=== PATIENT | male | born 1975 | race Caucasian/White ===

== ENCOUNTER 2016-09-06 15:27 | Emergency (ER) | payer BC ==
[2016-09-06 15:35] VITALS: BP 136/86
--- NOTE | 2016-09-06 15:48 | UC ---
Skin Complaint HPI - HPI Summary HPI Summary: Patient thought he had an ingrown hair on the top of his left hand, he attempted to pop it and now the hand is hot, red and swollen, tender with movement or touch. denies fever - History of Current Complaint Chief Complaint: UCSkin Stated Complaint: SKIN COMPLAINT Hx Obtained From: Patient Onset/Duration: Sudden Onset, Lasting Days Skin Exposure Onset/Duration: Days Ago Timing: Constant Onset Severity: Mild Current Severity: Mild Location: Discrete - left hand Character: Swelling, Redness, Painful Aggravating: Touch Alleviating: Nothing Associated Signs & Symptoms: Positive: Negative - Allergy/Home Medications Allergies/Adverse Reactions: Allergies Allergy/AdvReac Type Severity Reaction Status Date / Time No Known Allergies Allergy Verified 09/06/16 15:35 Review of Systems Skin: Other - red painful area on hand Eyes: Negative ENT: Negative Respiratory: Negative Cardiovascular: Negative Gastrointestinal: Negative Genitourinary: Negative Motor: Negative Neurovascular: Negative Musculoskeletal: Edema Neurological: Negative Psychological: Negative All Other Systems Reviewed And Are Negative: Yes PMH/Surg Hx/FS Hx/Imm Hx Previously Healthy: Yes Endocrine History Of: Denies: Diabetes, Thyroid Disease Cardiovascular History Of: Denies: Cardiac Disorders, Hypertension Respiratory History Of: Denies: COPD, Asthma GI/ History Of: Denies: Ulcer - Surgical History Surgical History: Yes Surgery Procedure, Year, and Place: LEFT ankle - Family History Known Family History: Positive: Diabetes - Social History Alcohol Use: Occasionally Substance Use Type: None Smoking Status (MU): Never Smoked Tobacco - Immunization History Most Recent Influenza Vaccination: [id number] Physical Exam Triage Information Reviewed: Yes Appearance: Well-Appearing, Well-Nourished, Pain Distress Vital Signs: Initial Vital Signs Temp 98.1 F 09/06/16 15:32 Pulse 65 09/06/16 15:32 Resp 16 09/06/16 15:32 BP 136/86 09/06/16 15:32 Pulse Ox 100 09/06/16 15:32 Vital Signs Reviewed: Yes Eye Exam: Normal Eyes: Positive: Conjunctiva Clear ENT Exam: Normal ENT: Positive: Normal ENT inspection, Hearing grossly normal, Pharynx normal, TMs normal Dental Exam: Normal Neck exam: Normal Neck: Positive: Supple, Nontender, No Lymphadenopathy Respiratory Exam: Normal Respiratory: Positive: Chest non-tender, Lungs clear, Normal breath sounds Cardiovascular Exam: Normal Cardiovascular: Positive: RRR, No Murmur, Pulses Normal Abdominal Exam: Normal Bowel Sounds: Positive: Present Musculoskeletal Exam: Normal Musculoskeletal: Positive: Strength Intact, ROM Limited @ - with finger flexion due to swelling Neurological Exam: Normal Neurological: Positive: Alert, Muscle Tone Normal Psychological Exam: Normal Skin Exam: Normal Course/Dx - Course Course Of Treatment: hx obtained, exam performed, medication prescribed for cellulitis - Differential Diagnoses - Skin Complaint Differential Diagnoses: Allergic Reaction, Cellulitis, Urticaria - Diagnoses Provider Diagnoses: cellulitis Discharge - Discharge Plan Condition: Stable Disposition: HOME Prescriptions: Sulfamethox/Trimethoprim DS* [Bactrim DS 800/160 TAB*] 1 tab PO BID #14 tab Patient Education Materials: Cellulitis (ED) Additional Instructions: Take the full course of bactrim. I recommend that you soak your hand in warm soapy water a few times a day for the next few days, to increase circulation. Follow up with any fever, or increase in swelling or erythema.
== END 2016-09-06 16:05 | disposition home or self-care (01) ==
LOC: UCCORT 15:27
DX: L03.114 Cellulitis of left upper limb (principal)
CPT/HCPCS: 99212; G0463

== ENCOUNTER 2016-09-14 12:07 | Emergency (ER) | payer BC ==
[2016-09-14 12:57] VITALS: BP 115/82
--- NOTE | 2016-09-14 13:02 | UC ---
Skin Complaint HPI - HPI Summary HPI Summary: abscess left hand x 10 day s was seen 10 days ago at the walk in , was place on Bactrim ds , just finished the abx cont. to have pain and swelling of the hand, had been draining no fever, no chills - History of Current Complaint Chief Complaint: UCWounds Time Seen by Provider: 09/14/16 12:36 Stated Complaint: LEFT HAND COMPLAINT Hx Obtained From: Patient Onset/Duration: Gradual Onset, Lasting Days - 10, Still Present, Worse Since - past 2 dasy Timing: Constant Onset Severity: Moderate Current Severity: Moderate Location: Hand (Left) - dorsal aspect Character: Swelling, Pain, Redness, Raised, Painful Aggravating: Touch Alleviating: Heat Associated Signs & Symptoms: Positive: Tenderness - Allergy/Home Medications Allergies/Adverse Reactions: Allergies Allergy/AdvReac Type Severity Reaction Status Date / Time No Known Allergies Allergy Verified 09/06/16 15:35 Home Medications: Home Medications NK [No Home Medications Reported] 09/14/16 [History Confirmed 09/14/16] Review of Systems Constitutional: Negative Skin: Other - abscess left hand Eyes: Negative ENT: Negative Respiratory: Negative Cardiovascular: Negative All Other Systems Reviewed And Are Negative: Yes PMH/Surg Hx/FS Hx/Imm Hx Previously Healthy: Yes Endocrine History Of: Denies: Diabetes, Thyroid Disease Cardiovascular History Of: Denies: Cardiac Disorders, Hypertension Respiratory History Of: Denies: COPD, Asthma GI/ History Of: Denies: Ulcer - Surgical History Surgical History: Yes Surgery Procedure, Year, and Place: LEFT ankle - Family History Known Family History: Positive: Diabetes - Social History Alcohol Use: Occasionally Substance Use Type: None Smoking Status (MU): Never Smoked Tobacco - Immunization History Most Recent Influenza Vaccination: [id number] Physical Exam Triage Information Reviewed: Yes Appearance: Well-Appearing, Well-Nourished, Pain Distress Vital Signs: Initial Vital Signs Temp 97.9 F 09/14/16 12:53 Pulse 74 09/14/16 12:53 Resp 16 09/14/16 12:53 BP 115/82 09/14/16 12:53 Pulse Ox 96 09/14/16 12:53 Vital Signs Reviewed: Yes Eye Exam: Normal Eyes: Positive: Conjunctiva Clear ENT: Positive: Normal ENT inspection, Hearing grossly normal, Pharynx normal Neck exam: Normal Neck: Positive: Supple, Nontender, No Lymphadenopathy Respiratory: Positive: Chest non-tender, Lungs clear, Normal breath sounds Cardiovascular: Positive: RRR, No Murmur, Pulses Normal Skin: Positive: Other - abscess left hand , + swelling, erythem , + white drainage Course/Dx - Diagnoses Provider Diagnoses: abscess left hand Discharge - Discharge Plan Condition: Stable Disposition: HOME Patient Education Materials: Abscess (ED) Referrals: Radha Rahman MD [Primary Care Provider] - 2 Weeks Additional Instructions: keep the area clean change the dressing daily keflex 500 mg 3x per day for 10 days follow up for wound check in 2 days
== END 2016-09-14 13:01 | disposition home or self-care (01) ==
LOC: UCCORT 12:07
DX: L02.512 Cutaneous abscess of left hand (principal)
CPT/HCPCS: 99212; G0463

== ENCOUNTER 2016-10-22 15:47 | Emergency (ER) | payer BC ==
[2016-10-22 16:09] VITALS: BP 136/78
[2016-10-22] MEDS ORDERED: Lidocaine 1%* 5 ML VIAL ONE (17:27)
[2016-10-22] MEDS ORDERED: ceFAZolin 500 MG VIAL(*) 500 MG VIAL IM ONE (17:27)
[2016-10-22] MEDS ORDERED: Lidocaine 2% PF* 5 ML VIAL ONE (17:29)
--- NOTE | 2016-10-22 17:33 | UC ---
Skin Complaint HPI - HPI Summary HPI Summary: 41 yo gentleman with L post neck sore, started Tuesday (possibly after hair cut) and worsening since Tuesday. Today is Tuesday. No fever / chills. Tried to squeeze it earlier today, but nothing came out. However, redness, pain, swelling have increased. No neck stiffness. Able to work today. Pertinent hx - last month was treated for L dorsal hand abscess. Required 2 courses of abx (bactrim - didn't really work, cephalexin did work). Denies sores elsewhere. Cx was not sent. Tet utd per pt. PCP Dr Rahman. - History of Current Complaint Chief Complaint: UCSkin Time Seen by Provider: 10/22/16 17:10 Stated Complaint: SKIN COMPLAINT Hx Obtained From: Patient Onset/Duration: Gradual Onset - Allergy/Home Medications Allergies/Adverse Reactions: Allergies Allergy/AdvReac Type Severity Reaction Status Date / Time No Known Allergies Allergy Verified 10/22/16 16:08 Review of Systems Constitutional: Negative Skin: Other - see hpi Eyes: Negative ENT: Negative Respiratory: Negative Cardiovascular: Negative Gastrointestinal: Negative Genitourinary: Negative Motor: Negative Neurovascular: Negative Musculoskeletal: Negative Neurological: Negative Psychological: Negative All Other Systems Reviewed And Are Negative: Yes PMH/Surg Hx/FS Hx/Imm Hx - Additional Past Medical History Additional PMH: see hpi Previously Healthy: Yes Endocrine History Of: Denies: Diabetes, Thyroid Disease Cardiovascular History Of: Denies: Cardiac Disorders, Hypertension Respiratory History Of: Denies: COPD, Asthma GI/ History Of: Denies: Ulcer - Surgical History Surgical History: Yes Surgery Procedure, Year, and Place: LEFT ankle - Family History Known Family History: Positive: Diabetes - Social History Alcohol Use: Occasionally Substance Use Type: None Smoking Status (MU): Never Smoked Tobacco - Immunization History Most Recent Influenza Vaccination: [id number] Physical Exam Triage Information Reviewed: Yes Appearance: Well-Appearing, Well-Nourished Vital Signs: Initial Vital Signs Temp 98.6 F 10/22/16 16:06 Pulse 71 10/22/16 16:06 Resp 15 10/22/16 16:06 BP 136/78 10/22/16 16:06 Pulse Ox 98 10/22/16 16:06 Vital Signs Reviewed: Yes Eye Exam: Normal ENT Exam: Normal Neck exam: Other - Post neck with redness, inflammation approx 6.5cm L x 6cm W with central area of pimple like purulence, but not draining. Neck is supple. No meningismus. Respiratory Exam: Normal - no tachypnea / no dypsnea. Cardiovascular Exam: Normal Abdominal Exam: Normal Musculoskeletal Exam: Normal Neurological Exam: Normal Psychological Exam: Normal Skin Exam: Other - see above neck. O/w ok. Course/Dx - Course Course Of Treatment: Reviewed microbiol as available in [employer] (n/a). [employer] and drainage: Pt expressed understanding and agreement. Appropriate time out(s ) performed. Cleansed with alcohol pad followed by betadine swab. Local anesthesia with 3 cc of 2% lidocaine with 10:1 NaHCO3 buffer. 1.2cm insicion with #11 blade scalpal to approx 1.2cm depth. Dark yellow purulent thick material returned. + swab via sethi cx obtained. Irrigated with NS 10cc with effl approx that of affluent. Packed gently with iodoform 1/4inch gauze. Dressing per RN. Tolerated procedure well, without complication. Reviewed WC instructions. See AVS. Questions answered to the best of my ability. - Diagnoses Provider Diagnoses: Posterior neck abscess and cellulitis Discharge - Discharge Plan Condition: Stable Disposition: HOME Prescriptions: DOXYcycline CAP(*) [DOXYcycline 100MG CAP(*)] 100 mg PO BID #20 cap Mupirocin 2% OINT* [Bactroban 2 % Oint*] 1 applic TOPICAL BID #1 tube Patient Education Materials: Abscess (ED) Referrals: Radha Rahman MD [Primary Care Provider] - Additional Instructions: Follow up [facility] or [facility] in 2 days. Ok to shower, but try to avoid getting back of neck wet. If it does get wet, change the outer dressing, leave the packing in place. Seek medical attention sooner for worse or new problems. Wound culture in the lab. Ancef here today 500mg IM Rx - Doxycycline 100mg by mouth twice daily. This could be modified, pending culture results. Start Doxycycline tonight. Confirm your tetanus immunization status with Dr. Rahman's office, at your convenience.
[2016-10-22] MEDS ORDERED: Sodium Bicarbonate 8.4% IV* 50 ML VIAL ONE (17:36)
== END 2016-10-22 18:31 | disposition home or self-care (01) ==
LOC: UCCORT 15:47
DX: L02.11 Cutaneous abscess of neck (principal); L03.221 Cellulitis of neck
CPT/HCPCS: 10061; 87070; 87077; 87186; 87205; 87640; 87641; 96372; 99212; G0463; J0690

== ENCOUNTER 2016-10-24 07:15 | Emergency (ER) | payer BC ==
[2016-10-24 07:24] VITALS: BP 138/76
[2016-10-24] MEDS ORDERED: Lidocaine 4% TOPICAL* 50 ML TOP.SOLN TOPICAL ONE (07:27)
--- NOTE | 2016-10-24 08:31 | UC ---
General HPI - HPI Summary HPI Summary: 41 yo gentleman presents to [facility] for planned f/u for post neck abscess. S/p I/D in [facility], by myself. Feels better. Left dressing on. No fever / chills. No new sores. No new redness. Details of abscess as noted on [facility] notes from . - History of Current Complaint Chief Complaint: UCWounds Stated Complaint: WOUND RECHECK Time Seen by Provider: 10/24/16 07:27 Hx Obtained From: Patient Onset/Duration: Lasting Days - Allergy/Home Medications Allergies/Adverse Reactions: Allergies Allergy/AdvReac Type Severity Reaction Status Date / Time No Known Allergies Allergy Verified 10/22/16 16:08 Home Medications: Home Medications Ibuprofen TAB* [Advil TAB*] 200 mg PO Q8HR 10/24/16 [History Confirmed 10/24/16] PMH/Surg Hx/FS Hx/Imm Hx Previously Healthy: Yes Endocrine History Of: Denies: Diabetes, Thyroid Disease Cardiovascular History Of: Denies: Cardiac Disorders, Hypertension Respiratory History Of: Denies: COPD, Asthma GI/ History Of: Denies: Ulcer - Surgical History Surgical History: Yes Surgery Procedure, Year, and Place: LEFT ankle - Family History Known Family History: Positive: Diabetes - Social History Alcohol Use: Occasionally Substance Use Type: None Smoking Status (MU): Never Smoked Tobacco - Immunization History Most Recent Influenza Vaccination: [id number] Review of Systems Constitutional: Negative Skin: Other - see hpi Eyes: Negative ENT: Negative Respiratory: Negative Cardiovascular: Negative Gastrointestinal: Negative Genitourinary: Negative Motor: Negative Neurovascular: Negative Musculoskeletal: Negative Neurological: Negative Psychological: Negative All Other Systems Reviewed And Are Negative: Yes Physical Exam Triage Information Reviewed: Yes Appearance: Well-Appearing, Well-Nourished Vital Signs: Initial Vital Signs Temp 97.5 F 10/24/16 07:19 Pulse 83 10/24/16 07:19 Resp 16 10/24/16 07:19 BP 138/76 10/24/16 07:19 Pulse Ox 97 10/24/16 07:19 Vital Signs Reviewed: Yes Eye Exam: Normal - grossly normal ENT Exam: Normal - grossly normal Neck exam: Other - see skin Neck: Positive: Supple, Nontender Respiratory Exam: Normal - no dyspnea / no tachypnea Abdominal Exam: Normal Musculoskeletal Exam: Normal Neurological Exam: Normal Psychological Exam: Normal Skin Exam: Other - post neck with redness at site of previous abscess I/d. The area of redness has decreased since Tuesday10/22/16, but is still inflammed and cellulitic. + yellow purulent material expressed, carla from inferior wound site. No foul odor, no crepitus. Course/Dx - Course Course Of Treatment: Wound irrigated by myself. 4% topical lidocaine solution applied. Gently explored wound, expressed small purulent material. Gently packed with 1/4inch iodoform gauze, covered with gauze and tape. Pt may need further extension of incision, but best in the surgery office. D/w Mr. Das , who expresses understanding and agreement. D/w Dr. Freeman 08:00 (Gen Surg ) - he will kindly see in the surgery office tomorrow morning. Meanwhile, continue current abx, wound care as previously instructed. To ED for worse or new problems in the meantime. Questions as posed answered to the best of my ability. - Differential Dx - Multi-Symptom Provider Diagnoses: Ascess and cellulitis recheck. Discharge - Discharge Plan Condition: Stable Disposition: HOME Patient Education Materials: Abscess (ED) Referrals: Radha Rahman MD [Primary Care Provider] - Fredy Freeman MD [Medical Doctor] - 1 Day (Call Dr. Freeman tomorrow at 08: 30am to schedule follow-up) Additional Instructions: Follow up with Dr. Freeman tomorrow. Call the office at 08:30am to schedule appointment. Continue Doxycycline. Seek medical attention sooner for worse or new problems in the meantime. Continue wound care instructions as per your visit on 10/22/2016.
== END 2016-10-24 08:25 | disposition home or self-care (01) ==
LOC: UCEAST 07:15
DX: L02.11 Cutaneous abscess of neck (principal); L03.221 Cellulitis of neck
CPT/HCPCS: 99212; G0463

== ENCOUNTER 2017-02-19 12:03 | Emergency (ER) | payer BC ==
[2017-02-19 12:21] VITALS: BP 136/82
--- NOTE | 2017-02-19 13:12 | UC ---
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 Pt states the tip of his nose has progressively gotten redder and bigger as the week has gone on. Denies fever." no drainage. this is 3rd skin infection he has had in 3 months. all have tested negative for MRSA. he has been using topical mupiricin w/o any relief. nkda - History of Current Complaint Chief Complaint: UCSkin Time Seen by Provider: 02/19/17 12:50 Stated Complaint: FACIAL SKIN CONCERN - Allergy/Home Medications Allergies/Adverse Reactions: Allergies Allergy/AdvReac Type Severity Reaction Status Date / Time No Known Allergies Allergy Verified 02/19/17 12:21 Review of Systems Constitutional: Negative Skin: Negative Eyes: Negative ENT: Negative, Other - left nares sore/nose infection. no drainage Respiratory: Negative Cardiovascular: Negative Gastrointestinal: Negative Genitourinary: Negative Motor: Negative Neurovascular: Negative Musculoskeletal: Negative Neurological: Negative Psychological: Negative All Other Systems Reviewed And Are Negative: Yes PMH/Surg Hx/FS Hx/Imm Hx Previously Healthy: Yes - Surgical History Surgical History: Yes Surgery Procedure, Year, and Place: LEFT ankle - Family History Known Family History: Positive: Diabetes - Social History Alcohol Use: Occasionally Substance Use Type: None Smoking Status (MU): Never Smoked Tobacco - Immunization History Most Recent Influenza Vaccination: [id number] Physical Exam Triage Information Reviewed: Yes Appearance: Well-Appearing, No Pain Distress, Well-Nourished Vital Signs: Initial Vital Signs Temp 98.6 F 02/19/17 12:16 Pulse 77 02/19/17 12:16 Resp 14 02/19/17 12:16 BP 136/82 02/19/17 12:16 Pulse Ox 100 02/19/17 12:16 Vital Signs Reviewed: Yes Eye Exam: Normal ENT Exam: Normal ENT: Positive: Hearing grossly normal, Pharynx normal, TMs normal, Other: - distal nose with erythema, no abscess or discharge. slightly warm to touch. distal internal nares left with small pore opening with mild honey crusted discharge. no purulent discharge or head noted. tender. Neck exam: Normal Neck: Positive: Supple, Nontender, No Lymphadenopathy Respiratory: Positive: Lungs clear, Normal breath sounds, No respiratory distress, No accessory muscle use. Negative: Crackles, Rhonchi, Stridor Abdominal Exam: Normal Abdomen Description: Positive: Nontender, Soft Musculoskeletal Exam: Normal Neurological Exam: Normal Psychological Exam: Normal Skin: Positive: Other - see above Course/Dx - Differential Diagnoses - Skin Complaint Differential Diagnoses: Abscess, Cellulitis, Diabetes - Diagnoses Provider Diagnoses: left nares cellulitis Discharge - Discharge Plan Condition: Stable Disposition: HOME Prescriptions: Sulfamethox/Trimethoprim DS* [Bactrim DS 800/160 TAB*] 1 tab PO BID #20 tab Patient Education Materials: Cellulitis (ED) Referrals: Radha Rahman MD [Primary Care Provider] - Warren Kauffman MD [Medical Doctor] - 3 Days Additional Instructions: continue with mupiricin await wound culture results take a probiotic daily while on the antibiotic to help prevent c diff Follow up with your PCP to inquire about causes of recurrent infections such as diabetes or at least consider an infectious disease consult.
== END 2017-02-19 13:31 | disposition home or self-care (01) ==
LOC: UCCORT 12:03
DX: J34.0 Abscess, furuncle and carbuncle of nose (principal)
CPT/HCPCS: 87070; 87077; 99212; G0463

== ENCOUNTER 2017-04-26 20:01 | Emergency (ER) | payer BC ==
[2017-04-26 21:09] VITALS: BP 136/91
[2017-04-26] MEDS ORDERED: Azithromycin TAB* 250 MG PO ONE (21:37)
[2017-04-26] MEDS ORDERED: Amoxicillin/Clavulanate TAB* 875 MG PO ONE (21:37)
--- NOTE | 2017-04-26 21:42 | RAD ---
INDICATION: Chest pain COMPARISON: None TECHNIQUE: PA and lateral dual-energy views were obtained. FINDINGS: Bones/Soft Tissues: There are no acute bony findings. Cardiomediastinal: The cardiomediastinal silhouette is normal. Lungs: There is a moderate-sized lingular infiltrate with consolidation. The remaining lung hardy are clear. Pleura: There are no pleural effusions. Other: None IMPRESSION: LINGULAR PNEUMONIA. SUGGEST FOLLOW-UP.
--- NOTE | 2017-04-26 22:10 | ED ---
Respiratory - HPI Summary HPI Summary: 41 yr old with cough, fever, malaise for three days. He has others with pneumonia in his household. He states he feels tired and is coughing a lot. Denies CP. Denies SOB. He has not had runny nose or sore throat. - History of Current Complaint Chief Complaint: UCGeneralIllness Stated Complaint: FEVER,COUGH,BODY ACHES Time Seen by Provider: 04/26/17 21:16 Pain Intensity: 0 - Allergy/Home Medications Allergies/Adverse Reactions: Allergies Allergy/AdvReac Type Severity Reaction Status Date / Time No Known Allergies Allergy Verified 04/26/17 21:09 PMH/Surg Hx/FS Hx/Imm Hx Endocrine/Hematology History: Denies: Hx Diabetes, Hx Thyroid Disease Cardiovascular History: Denies: Hx Hypertension Respiratory History: Denies: Hx Asthma, Hx Chronic Obstructive Pulmonary Disease (COPD) GI History: Denies: Hx Ulcer - Surgical History Surgery Procedure, Year, and Place: LEFT ankle Infectious Disease History: No Infectious Disease History: Denies: Hx Clostridium Difficile, Hx Hepatitis, Hx Human Immunodeficiency Virus (HIV), Hx of Known/Suspected MRSA, Hx Shingles, Hx Tuberculosis, Hx Known/ Suspected VRE, Hx Known/Suspected VRSA, History Other Infectious Disease, Traveled Outside the [place] in Last 30 Days - Family History Known Family History: Positive: Diabetes - Social History Occupation: Employed Full-time Alcohol Use: Occasionally Substance Use Type: Reports: None Smoking Status (MU): Never Smoked Tobacco Review of Systems Positive: Fever, Chills, Fatigue Positive: Cough All Other Systems Reviewed And Are Negative: Yes Physical Exam Triage Information Reviewed: Yes Vital Signs On Initial Exam: Initial Vitals Temp Pulse Resp BP Pulse Ox 98.1 F 98 17 136/91 94 04/26/17 21:05 04/26/17 21:05 04/26/17 21:05 04/26/17 21:05 04/26/17 21:05 Vital Signs Reviewed: Yes Appearance: Positive: Well-Appearing, No Pain Distress Skin: Positive: Warm, Skin Color Reflects Adequate Perfusion Head/Face: Positive: Normal Head/Face Inspection Eyes: Positive: EOMI ENT: Positive: Normal ENT inspection Neck: Positive: Nontender Respiratory/Lung Sounds: Positive: Clear to Auscultation, Breath Sounds Present Cardiovascular: Positive: RRR. Negative: Murmur Abdomen Description: Positive: Nontender Musculoskeletal: Positive: Strength/ROM Intact Neurological: Positive: Alert, Oriented to Person Place, Time, CN Intact II-III Psychiatric: Positive: Normal Diagnostics - Vital Signs Vital Signs Temp Pulse Resp BP Pulse Ox 04/26/17 21:05 98.1 F 98 17 136/91 94 - Laboratory Lab Statement: Any lab studies that have been ordered have been reviewed, and results considered in the medical decision making process. - Radiology chest pa lat Xray Interpretation: Positive (See Comments) Radiology Interpretation Completed By: Radiologist Disposition - Course Course Of Treatment: 41 yr old with pneumonia, dc home on augmentin and zpack - Diagnoses Provider Diagnoses: CAP (community acquired pneumonia) Discharge - Discharge Plan Condition: Good Disposition: HOME Prescriptions: Amoxicillin/Clavulanate TAB* [Augmentin TAB 875*] 875 mg PO BID #20 tab Azithromycin TAB* [Zithromax TAB (Z-COURTNEY) 250 mg #6 tabs] 2 tab PO .TODAY, THEN 1 DAILY #1 courtney Patient Education Materials: Community Acquired Pneumonia (ED), Hypertension ( ED) Forms: *Work Release Referrals: Radha Rahman MD [Primary Care Provider] - 3 Days
== END 2017-04-26 21:45 | disposition home or self-care (01) ==
LOC: UCCORT 20:01
DX: J18.9 Pneumonia, unspecified organism (principal); E11.69 Type 2 diabetes mellitus with other specified complication; E07.9 Disorder of thyroid, unspecified; I10 Essential (primary) hypertension; J44.9 Chronic obstructive pulmonary disease, unspecified
CPT/HCPCS: 71020; 99212; A9270-GY; G0463

== ENCOUNTER 2017-06-08 07:34 | Emergency (ER) | payer BC ==
[2017-06-08 07:43] VITALS: BP 134/85
--- NOTE | 2017-06-08 08:12 | UC ---
Ear Complaint HPI - HPI Summary HPI Summary: PT presents with 1 week ear pain and right sided ROSARIO. Pt states occassionally when looks to the extreme left or right feels slight dizzy and blurry - rapid resolution. Pt has been taking ibuprofen BID with mild relief. Pt takein Claritin D. no fever, chills, rash. mild sinus congestion. No sore throat. no cough. no cp, abd pain PT was tx for PNA 1 month ago with z pack - sx resolved Pt's medications reviewed this visit - History of Current Complaint Chief Complaint: UCEar Stated Complaint: HEADACHE, EAR PAIN Time Seen by Provider: 06/08/17 07:53 Hx Obtained From: Patient Onset/Duration: Gradual Onset Severity Initially: Mild Severity Currently: Moderate - Allergies/Home Medications Allergies/Adverse Reactions: Allergies Allergy/AdvReac Type Severity Reaction Status Date / Time No Known Allergies Allergy Verified 06/08/17 07:39 Home Medications: Home Medications Ibuprofen TAB* [Motrin TAB* 600 MG] 06/08/17 [History] Loratadine & Pseudoephedrine [Claritin-D 12 Hour 5-120 mg] 06/08/17 [History] PMH/Surg Hx/FS Hx/Imm Hx Previously Healthy: Yes - Surgical History Surgical History: Yes Surgery Procedure, Year, and Place: LEFT ankle - Family History Known Family History: Positive: Diabetes - Social History Occupation: Employed Full-time Lives: With Family Alcohol Use: Occasionally Substance Use Type: None Smoking Status (MU): Never Smoked Tobacco - Immunization History Most Recent Influenza Vaccination: 03/2017 Review of Systems Constitutional: Negative Eyes: Blurred Vision - fleeting when look to extremes ENT: Ear Ache, Sinus Congestion Respiratory: Negative Cardiovascular: Negative All Other Systems Reviewed And Are Negative: Yes Physical Exam Triage Information Reviewed: Yes Appearance: Well-Appearing, No Pain Distress, Well-Nourished Vital Signs: Initial Vital Signs Temp 96.9 F 06/08/17 07:41 Pulse 91 06/08/17 07:41 Resp 16 06/08/17 07:41 BP 134/85 06/08/17 07:41 Pulse Ox 100 06/08/17 07:41 Vital Signs Reviewed: Yes Eye Exam: Normal Eyes: Positive: Conjunctiva Clear, Other: - 2 beat horizontal nystagmus to left ENT: Positive: Other - right TM ++ fluid, erythema poorly visualized structures second to fluid left TM scant fluid no mastoid pain no temporal artery pain turbinates inflammed and boggy +PND no exudate, no erythema, uvula miline Dental Exam: Normal Neck exam: Normal Neck: Positive: Supple, Nontender, No Lymphadenopathy Respiratory Exam: Normal Respiratory: Positive: Chest non-tender, Lungs clear, Normal breath sounds, No respiratory distress, No accessory muscle use Cardiovascular Exam: Normal Cardiovascular: Positive: RRR, No Murmur, Pulses Normal, Brisk Capillary Refill Abdominal Exam: Normal Abdomen Description: Positive: Nontender, No Organomegaly, Soft Bowel Sounds: Positive: Present Musculoskeletal Exam: Normal Musculoskeletal: Positive: Strength Intact Neurological Exam: Normal Neurological: Positive: Alert Psychological Exam: Normal Psychological: Positive: Normal Response To Family Skin Exam: Normal Ear Complaint Course/Dx - Course Course Of Treatment: Pt with 1 week ROSARIO, right ear pain and occasional fleeting vision blurriness when looks to extreme. On exam with with fluid, erythema right ear. + extinguishing nystagmus. will start flonase. amox - d/w pt to eat yogurt, probiotic. hydrate. motrin/apap. rest. PCP f/u - Differential Dx/Diagnosis Provider Diagnoses: right otitis media Discharge - Discharge Plan Condition: Stable Disposition: HOME Prescriptions: Amoxicillin PO (*) [Amoxicillin 875 MG (*)] 875 mg PO BID #20 tab Fluticasone NASAL SPRAY 50MCG* [Flonase NASAL SPRAY 50MCG*] 2 spray BOTH NARES DAILY #1 btl Patient Education Materials: Otitis Media (ED) Referrals: Radha Rahman MD [Primary Care Provider] - Additional Instructions: - stay well hydrated. Drink plenty of non-alcoholic, non-caffinated beverages - take antibiotics 2 times a day as prescribed. Take with food - use nasal spray daily as instructed - Okay to alternate ibuprofen (Advil, Motrin) and tylenol every 3 hours for pain. Take with food. do NOT take for more than 4-5 days. - Contact your doctor to schedule a follow-up appointment next week. Contact your doctor or return with questions or concerns
[2017-06-08] MEDS ORDERED: Amoxicillin PO (*) 875 MG TAB PO SCH (09:00)
[2017-06-08] MEDS ORDERED: Fluticasone NASAL SPRAY 50MCG* 16 gm SPRAY BTL BOTH NARES SCH (09:00)
== END 2017-06-08 08:20 | disposition home or self-care (01) ==
LOC: UCEAST 07:34
DX: H66.91 Otitis media, unspecified, right ear (principal)
CPT/HCPCS: 99212; G0463

== ENCOUNTER 2017-06-23 11:23 | Emergency (ER) | payer BC ==
[2017-06-23 11:51] LABS: Hematocrit 47 % (42-52); Hemoglobin 15.8 g/dl (14.0-18.0); Mean Corpuscular HGB Conc 34 g/dl (31-36); Mean Corpuscular Hemoglobin 30 pg (27-31); Mean Corpuscular Volume 88 fL (80-94); Mean Platelet Volume 8 um3 (7.4-10.4); Red Cell Distribution Width 13 % (10.5-15); White Blood Count 4.2 10^3/ul (3.5-10.8)
--- OUTSIDE RECORDS SUMMARY | 2017-06-23 11:56 | XMS REPORT ---
:1975 External Reference #:[id number] Author Organization [facility] [employer] Address [address] [place] [address] Phone [phone] Care Team Providers Name Role Phone Radha Rahman M.D. Primary Care Physician Unavailable Payers Type Date Identification Numbers Payment Provider Subscriber Commercial Policy Number: [id number] BS [place] Gurjit Maricruz Taylor PayID: [id number] [id number] [place] [id number] Problems Date Description Provider Status Onset: Seasonal allergy Active Onset: 06/23/2017 Optic disc edema Jayce Recio M.D. 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 ETOH Use Occasionally consumes alcohol Smoking Patient has never smoked Recreational Drug Use Denies Drug Use Daily Caffeine Does Not Consume Caffeine Allergies, Adverse Reactions, Alerts Date Description Reaction Status Severity Comments 06/23/2017 NKDA active Medications Medication Date Status Form Strength Qnty SIG Indications Ordering Provider Zyrtec Allergy Active Capsules 10mg as needed Unknown 00 Results Description No Information Procedures Description No Information Plan of Care 06/23/2017 - Jayce Recio M.D.[id number] Unspecified papilledemaComments: Smoking can increase the risk of developing or worsening any eye related disease , as well as affect your overall health. If you are a smoker, we strongly recommend that you quit.If you are not a smoker, we strongly recommend that you do not start. YOUR OPTIC NERVES ARE SWOLLEN. THIS REQUIRES EVALUATION IN THE EMERGENCY DEPARTMENT WITH BRAIN IMAGING TO LOOK FOR A CAUSE.
--- OUTSIDE RECORDS SUMMARY | 2017-06-23 11:57 | XMS REPORT ---
:1975 External Reference #:[id number] Author Organization [facility] Address [address] [place] [address] Phone [phone] Care Team Providers Name Role Phone Radha Rahman MD FACP Primary Care Physician Unavailable Payers Type Date Identification Numbers Payment Provider Subscriber Commercial Policy Number: [id number] [facility] SYLVIE Maricruz Das Group Number: [id number] [address] [id number] PayID: [id number] [place] [address] Advance Directives Description No Advance Directives Problems Date Description Provider Status Onset: 02/28/2009 Leukopenia Radha Rahman MD Active Onset: 04/10/2008 Premature ejaculation Radha Rahman MD Inactive Inactive: 11/13/2013 Onset: 02/28/2009 Mixed hyperlipidemia Radha Rahman MD Inactive Inactive: 11/13/2013 Family History Date Family Member(s) Problem(s) Comments General Heart Disease GM General Stroke GF General Diabetes Mellitus II GM General Hypertension Mother and GM General Breast Cancer Aunt Social History Type Date Description Comments Marital Status 2 kids 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 Cigarette Use Never Smoked Cigarettes ETOH Use consumes 1-2 beers per week Recreational Drug Use Never Used Drugs Smoking Patient has never smoked Exercise Type/Frequency Exercises regularly Elliptical, bike, resistance, walk 45 min, 4-5 time per week Tattoo/Piercing Tattoo Right lower lateral leg Allergies, Adverse Reactions, Alerts Date Description Reaction Status Severity Comments 03/14/2008 NKDA active Medications Medication Date Status Form Strength Qnty SIG Indications Ordering Provider Amoxicillin/Cl 10/25/ Active Tablets 875-125mg Take 1 Unknown avulanate 2017 tablet by Potassium mouth every 12 hours for 10 days for lower respiratory tract infection Azithromycin 04/27/ Hx Tablets 250mg 6tabs 2 on first Unknown 2016 - day than 1 05/02/ daily for 4 2017 days Vitamin D3 12/09/ Hx Capsules 2000Unit 1 by mouth E55.9 Radha 2016 - every day Trevon Rahman 12/09/ 2016 No Active 12/02/ Hx Unknown Medications 2015 - 2015 No Active 10/11/ Hx Unknown Medications 2012 - 2012 Vitamin D-3 10/11/ Hx Tablets 2000Unit take 1 E55.9 Radha 2012 - tablet by Trevon Rahman 07/03/ mouth daily 2013 for nutritional support Amoxicillin 01/08/ Hx Tablets 500mg 30tabs 1 po tid 382.9 Garcia 2009 - Trevon Rahman 01/30/ 2009 Zyrtec Allergy 11/13/ Hx Tablets 10mg 1 po qd 995.3 Garcia 2009 - Trevon Rahman 02/04/ 2009 Multivital 07/04/ Hx Tablets 1 by mouth V70.0 Unknown 1989 - every day 2011 Fluoxetine HCL / Hx Capsules 20mg 90caps 1 po qd 302.75 Radha 0000 - Trevon Rahman 2010 Immunizations CPT Code Status Date Vaccine Lot # [id number] Given 05/03/2014 Influenza Virus Vaccine Split Virus Use For Individual 3Yr Older 18391 Given 04/03/2013 Influenza Virus Split 3 Yrs And Above For Intramuscular Use 43168 Given 10/11/2012 Tdap-Tetanus, Diphtheria Toxoids/Acellular TDAP [id number] Pertussis Vaccine 7+ 25709 Given 04/10/2008 Tetanus Preservative Free For Use In Individuals 7 Yrs Or Older 53572 Given 05/04/2007 Influenza Virus Vaccine Split Virus Use For Individual 3Yr Older 00130 Refused 04/10/2008 Influenza Virus Vaccine Split Virus Use For Individual 3Yr Older Vital Signs Date Vital Result Comment 06/13/2017 Body Temperature 98.6 F Heart Rate 64 /min 04/28/2017 Body Temperature 98.6 F 12/08/2016 Heart Rate 62 /min BP Systolic 126 mmHg BP Diastolic 75 mmHg BMI (Body Mass Index) 31.4 kg/m2 Weight 214.00 lb Height 69.25 inches 5'9.25" 12/03/2015 O2 % BldC Oximetry 99 % Heart Rate 56 /min BP Systolic 118 mmHg BP Diastolic 70 mmHg BMI (Body Mass Index) 29.8 kg/m2 Weight 202.00 lb Height 69 inches 5'9" 11/29/2014 Body Temperature 97.9 F O2 % BldC Oximetry 98 % Heart Rate 64 /min BP Systolic 128 mmHg BP Diastolic 62 mmHg BMI (Body Mass Index) 29.4 kg/m2 Weight 205.00 lb Height 70 inches 5'10" 11/13/2013 Body Temperature 98.0 F O2 % BldC Oximetry 96 % Heart Rate 68 /min BP Systolic 110 mmHg BP Diastolic 70 mmHg BMI (Body Mass Index) 28.6 kg/m2 Weight 199.00 lb with shoes, in office, clothed Height 70 inches 5'10" 10/11/2012 Heart Rate 62 /min BP Systolic 115 mmHg BP Diastolic 70 mmHg BMI (Body Mass Index) 28.0 kg/m2 Weight 195.00 lb Height 70 inches 5'10" 09/27/2011 Body Temperature 98.3 F Heart Rate 64 /min BP Systolic 110 mmHg BP Diastolic 75 mmHg BMI (Body Mass Index) 28.0 kg/m2 Weight 195.00 lb Height 70 inches 5'10" 01/20/2010 Body Temperature 98.1 F Height 70 inches 5'10" 01/08/2010 Body Temperature 98.2 F Height 70 inches 5'10" 11/13/2009 Body Temperature 98.2 F Heart Rate 70 /min BP Systolic 115 mmHg BP Diastolic 75 mmHg Height 70 inches 5'10" 10/21/2009 Heart Rate 60 /min BP Systolic 125 mmHg BP Diastolic 70 mmHg BMI (Body Mass Index) 29.4 kg/m2 Weight 205.00 lb with shoes Height 70 inches 5'10" 02/28/2009 Heart Rate 64 /min BP Systolic 115 mmHg BP Diastolic 70 mmHg BMI (Body Mass Index) 28.7 kg/m2 Weight 200.00 lb with shoes Height 70 inches 5'10" 04/10/2008 Body Temperature 97.9 F Heart Rate 62 /min BP Systolic 110 mmHg BP Diastolic 70 mmHg BMI (Body Mass Index) 27.3 kg/m2 Weight 190.00 lb Height 70 inches 5'10" Results Test Date Test Result H/L Range Note Xray 05/16/2017 Chest, 2 Views Normal Laboratory test 02/19/2017 Wound/Misc SEE RESULT BELOW 1, 2 finding Culture-Gram Stain CBC Auto Diff 12/06/2016 White Blood Count 3.9 10^3/uL 3.5-10.8 Red Blood Count 5.21 10^6/uL 4.0-5.4 Hemoglobin 15.3 g/dL 14.0-18.0 Hematocrit 46 % 42-52 Mean Corpuscular Volume 89 fL 80-94 Mean Corpuscular Hemoglobin 30 pg 27-31 Mean Corpuscular HGB Conc 33 g/dL 31-36 Red Cell Distribution Width 13 % 10.5-15 Platelet Count 290 10^3/uL 150-450 Mean Platelet Volume 8 um3 7.4-10.4 Abs Neutrophils 1.8 10^3/uL 1.5-7.7 Abs Lymphocytes 1.6 10^3/uL 1.0-4.8 Abs Monocytes 0.4 10^3/uL 0-0.8 Abs Eosinophils 0.1 10^3/uL 0-0.6 Abs Basophils 0 10^3/uL 0-0.2 Abs Nucleated RBC 0 10^3/uL Granulocyte % 45.9 % 38-83 Lymphocyte % 39.6 % 25-47 Monocyte % 11.0 % High 1-9 Eosinophil % 2.6 % 0-6 Basophil % 0.9 % 0-2 Nucleated Red Blood Cells % 0 Comp Metabolic Panel 12/06/2016 Sodium 139 mmol/L 133-145 Potassium 4.3 mmol/L 3.5-5.0 Chloride 106 mmol/L 101-111 Co2 Carbon Dioxide 29 mmol/L 22-32 Anion Gap 4 mmol/L 2-11 Glucose 92 mg/dL 70-100 Blood Urea Nitrogen 15 mg/dL 6-24 Creatinine 1.12 mg/dL 0.67-1.17 BUN/Creatinine Ratio 13.4 8-20 Calcium 9.2 mg/dL 8.6-10.3 Total Protein 6.2 g/dL Low 6.4-8.9 Albumin 3.9 g/dL 3.2-5.2 Globulin 2.3 g/dL 2-4 Albumin/Globulin Ratio 1.7 1-3 Total Bilirubin 0.80 mg/dL 0.2-1.0 Alkaline Phosphatase 68 U/L 34-104 Alt 26 U/L 7-52 Ast 30 U/L 13-39 Egfr Non- 71.9 >60 Egfr 92.5 >60 3 Laboratory test finding 12/06/2016 Vitamin B12 339 pg/mL 180-914 4 Vitamin D Total 25(Oh) 20.8 ng/mL Low 30-50 Lipid Profile (Trig/Chol/HDL) 12/06/2016 Cholesterol 214 mg/dL High < 200 5 HDL Cholesterol 35.4 mg/dL Low >40 6 Triglycerides 135 mg/dL <150 7 LDL Cholesterol 152 mg/dL High <130 8 Urinalysis Profile 12/06/2016 Urine Color Yellow Urine Appearance Turbid Urine Specific Ilion 1.029 1.010-1.030 Urine pH 5.0 5-9 Urine Urobilinogen Negative Negative Urine Ketones Negative Negative Urine Protein Negative Negative Urine Leukocytes Negative Negative Urine Blood Negative Negative Urine Nitrite Negative Negative Urine Bilirubin Negative Negative Urine Glucose Negative Negative Laboratory test 10/22/2016 Wound/Misc Culture-Gram SEE RESULT BELOW 9, 10 finding Stain MRSA/S. aureus Ssti PCR SEE RESULT BELOW 9, 11 CBC Auto Diff 12/08/2015 White Blood Count 3.7 10^3/uL 3.5-10.8 12 Red Blood Count 5.23 10^6/uL 4.0-5.4 12 Hemoglobin 15.4 g/dL 14.0-18.0 12 Hematocrit 47 % 42-52 12 Mean Corpuscular Volume 90 fL 80-94 12 Mean Corpuscular Hemoglobin 29 pg 27-31 12 Mean Corpuscular HGB Conc 33 g/dL 31-36 12 Red Cell Distribution Width 13 % 10.5-15 12 Platelet Count 291 10^3/uL 150-450 12 Mean Platelet Volume 8 um3 7.4-10.4 12 Abs Neutrophils 1.7 10^3/uL 1.5-7.7 12 Abs Lymphocytes 1.5 10^3/uL 1.0-4.8 12 Abs Monocytes 0.5 10^3/uL 0-0.8 12 Abs Eosinophils 0.1 10^3/uL 0-0.6 12 Abs Basophils 0.1 10^3/uL 0-0.2 12 Abs Nucleated RBC 0.01 10^3/uL 12 Granulocyte % 44.2 % 38-83 12 Lymphocyte % 38.9 % 25-47 12 Monocyte % 13.3 % High 1-9 12 Eosinophil % 2.2 % 0-6 12 Basophil % 1.4 % 0-2 12 Nucleated Red Blood Cells % 0.2 12 Basic Metabolic Panel 12/08/2015 Sodium 140 mmol/L 133-145 12 Potassium 4.0 mmol/L 3.5-5.0 12 Chloride 107 mmol/L 101-111 12 Co2 Carbon Dioxide 27 mmol/L 22-32 12 Anion Gap 6 mmol/L 2-11 12 Glucose 95 mg/dL 70-100 12 Blood Urea Nitrogen 15 mg/dL 6-24 12 Creatinine 1.09 mg/dL 0.67-1.17 12 BUN/Creatinine Ratio 13.8 8-20 12 Calcium 8.9 mg/dL 8.6-10.3 12 Egfr Non- 74.6 >60 12 Egfr 95.9 >60 12, 13 Lipid Profile (Trig/Chol/HDL) 12/08/2015 Triglycerides 136 mg/dL <150 12, 14 Cholesterol 184 mg/dL <200 12, 15 HDL Cholesterol 31.9 mg/dL Low >35 12, 16 LDL Cholesterol 125 mg/dL <160 12, 17 Laboratory test finding 12/08/2015 Vitamin B12 354 pg/mL 180-914 12, 18 Vitamin D Total 25(Oh) 31.0 ng/mL 30-50 12, 19 Lipid Profile (Trig/Chol/HDL) 12/23/2014 Triglycerides 499 mg/dL 12, 20 Cholesterol 206 mg/dL 12, 21 HDL Cholesterol 28.2 mg/dL 12, 22 LDL Cholesterol (SEE NOTE) mg/dL 12, 23 CBC No Diff 11/26/2014 White Blood Count 3.5 10^3/uL Low 4.8-10.8 Red Blood Count 5.21 10^6/uL 4.0-5.4 Hemoglobin 16.1 g/dL 14.0-18.0 Hematocrit 47 % 42-52 Mean Corpuscular Volume 90 fL 80-94 Mean Corpuscular Hemoglobin 31 pg 27-31 Mean Corpuscular HGB Conc 34 g/dL 31-36 Red Cell Distribution Width 13 % 10.5-15 Platelet Count 273 10^3/uL 150-450 Mean Platelet Volume 8 um3 7.4-10.4 Basic Metabolic Panel 11/26/2014 Sodium 138 mmol/L 133-145 Potassium 4.2 mmol/L 3.5-5.0 Chloride 105 mmol/L 101-111 Co2 Carbon Dioxide 29 mmol/L 22-32 Anion Gap 4 mmol/L 2-11 Glucose 96 mg/dL 70-100 Blood Urea Nitrogen 16 mg/dL 6-24 Creatinine 1.12 mg/dL 0.67-1.17 BUN/Creatinine Ratio 14.3 8-20 Calcium 9.1 mg/dL 8.6-10.3 Egfr Non- 72.6 >60 Egfr 93.4 >60 24 CBC No Diff 11/05/2013 White Blood Count 3.7 10^3/uL Low 4.8-10.8 Red Blood Count 5.10 10^6/uL 4.0-5.4 Hemoglobin 15.3 g/dL 14.0-18.0 Hematocrit 45 % 42-52 Mean Corpuscular Volume 89 fL 80-94 Mean Corpuscular Hemoglobin 30 pg 27-31 Mean Corpuscular HGB Conc 34 g/dL 31-36 Red Cell Distribution Width 13 % 10.5-15 Platelet Count 267 10^3/uL 150-450 Mean Platelet Volume 8 um3 7.4-10.4 Basic Metabolic Panel 11/05/2013 Sodium 140 mmol/L 133-145 Potassium 4.1 mmol/L 3.7-5.6 Chloride 106 mmol/L 101-111 Co2 Carbon Dioxide 28 mmol/L 22-32 Anion Gap 6 mmol/L 2-11 Glucose 89 mg/dL 70-100 Blood Urea Nitrogen 15 mg/dL 6-24 Creatinine 1.11 mg/dL 0.67-1.17 BUN/Creatinine Ratio 13.5 8-20 Calcium 9.0 mg/dL 8.6-10.3 Egfr Non- 73.7 >60 Egfr 94.8 >60 25 Lipid Profile (Trig/Chol/HDL) 11/05/2013 Triglycerides 112 mg/dL 26 Cholesterol 192 mg/dL 27 HDL Cholesterol 31.7 mg/dL 28 LDL Cholesterol 138 mg/dL 29 Laboratory test finding 11/05/2013 Vitamin B12 363 pg/mL 180-914 30 TSH (Thyroid Stimulating Horm) 1.75 IU/mL 0.34-5.60 31 Vitamin D, 25 Hydroxy 11/05/2013 25-Hydroxy Vitamin D2 <4.0 ng/mL 25-Hydroxy Vitamin D3 47 ng/mL 25-Hydroxy Vitamin D Total 47 ng/mL 25-50 32 Throat-Beta Strept 09/17/2013 Throat Beta Strep Culture (SEE NOTE) 33 CBC No Diff 09/25/2012 White Blood Count 3.6 10^3/uL Low 4.8-10.8 Red Blood Count 5.08 10^6/uL 4.0-5.4 Hemoglobin 15.8 g/dL 14.0-18.0 Hematocrit 46 % 42-52 Mean Corpuscular Volume 90 fL 80-94 Mean Corpuscular Hemoglobin 31 pg 27-31 Mean Corpuscular HGB Conc 35 g/dL 31-36 Red Cell Distribution Width 13 % 10.5-15 Platelet Count 258 10^3/uL 150-450 Mean Platelet Volume 9 um3 7.4-10.4 Comp Metabolic Panel 09/25/2012 Sodium 139 mmol/L 133-145 Potassium 4.1 mmol/L 3.5-5.0 Chloride 106 mmol/L 101-111 Co2 Carbon Dioxide 25.0 mmol/L 22-32 Anion Gap 8.0 mmol/L 2-11 Glucose 85 mg/dL 70-100 Blood Urea Nitrogen 15 mg/dL 6-24 Creatinine 1.10 mg/dL 0.50-1.40 BUN/Creatinine Ratio 13.6 8-20 Calcium 9.4 mg/dL 8.1-9.9 Total Protein 6.0 g/dL Low 6.2-8.1 Albumin 4.1 g/dL 3.6-5.4 Globulin 1.9 g/dL Low 2-4 Albumin/Globulin Ratio 2.2 1-3 Total Bilirubin 1.0 mg/dL 0.4-1.5 Alkaline Phosphatase 55 U/L 30-110 Alt 21 U/L 14-54 Ast 21 U/L 12-42 Egfr Non- 74.9 >60 Egfr 96.3 >60 34 Lipid Profile (Trig/Chol/HDL) 09/25/2012 Triglycerides 52 mg/dL 40-200 Cholesterol 192 mg/dL Less than 200 HDL Cholesterol 36 mg/dL Low 40-60 35 Cholesterol/HDL Ratio 5.3 Average High 1-4.44 LDL Cholesterol 145.6 mg/dL Less Than 160 36 Vitamin D, 25 Hydroxy 09/25/2012 25-Hydroxy Vitamin D2 <4.0 ng/mL 25-Hydroxy Vitamin D3 28 ng/mL 25-Hydroxy Vitamin D Total 28 ng/mL 25-80 37 CBC No Diff 09/21/2011 White Blood Count 3.4 CUMM Low 4.8-10.8 Red Cell Count 4.85 CUMM 4.6-6.2 Hemoglobin 15.0 g/dL 14.0-18.0 Hematocrit 43 % 42-52 Mean Corpuscular Volume 90 um3 80-94 Mean Corpuscular Hemoglob 31 pg 27-31 Mean Corpuscular HGB Cone 35 g/dL 32-36 Redcell Distribution WDTH 13 % 10.5-15 Platelet Count 282 CUMM 150-450 Mean Platelet Volume 8.0 um3 7.4-10.4 Comp Metabolic Panel 09/21/2011 Sodium 136 mmol/L 135-145 Potassium 4.1 mmol/L 3.5-5.0 Chloride 106 mmol/L 101-111 Co2 (Carbon Dioxide) 25.0 mmol/L 22-32 Anion Gap 5.0 mmol/L 2-11 38 Glucose 101 mg/dL High 70-100 BUN 13 mg/dL 6-24 Creatinine 1.1 mg/dL 0.50-1.40 One Over Creatinine 0.90 BUN/Creatinine Ratio 11.8 8-20 Calcium 8.4 mg/dL 8.1-9.9 Total Protein 6.3 GM/DL 6.2-8.1 Albumin 3.8 GM/DL 3.6-5.4 Globulin 2.5 GM/DL 2-4 Albumin/Globulin Ratio 1.5 1-3 Bilirubin Total 0.9 mg/dL 0.4-1.5 39 Alkaline Phosphatase 61 U/L 39-117 Alt (SGPT) 30 U/L 17-63 Ast (Sgot) 25 U/L 12-42 eGFR Non- 75.3 > 60 eGFR 96.9 > 60 40 Lipid Profile (Trig/Chol/HDL) 09/21/2011 Triglyceride 140 mg/dL 40-200 Cholesterol 217 mg/dL High Less Than 200 41 High Density Lipoprotein 34 mg/dL Low 40-60 42 Cholesterol/HDL Ratio 6.38 AVERAGE High 1-4.97 Low Density Lipoprotein 155 mg/dL Less Than 160 43 Laboratory test finding 10/16/2009 Vitamin B12 660 pg/mL 180-914 LDL Direct 155 mg/dL High Less Than 100 44 HDL 31 mg/dL Low 40-60 45 Protein Electrophoresis Serum 10/16/2009 Albumin 3.63 GM/DL 3.0-4.35 Alpha 1 0.17 GM/DL 0.09-0.33 Alpha 2 0.82 GM/DL 0.59-1.18 Beta 0.86 GM/DL 0.68-1.02 Gamma 1.11 GM/DL 0.76-1.60 Albumin % 55.0 % 46-63 Alpha 1 % 2.6 % 1.2-5.3 Alpha 2 % 12.4 % 9-17 Beta % 13.0 % 10-16 Gamma % 16.8 % 12-22 A/G Ratio 1.2 0.9-2 Total Protein 6.6 GM/DL 6.2-8.1 Spep Comments (SEE NOTE) 46 CBC With Electronic Diff 10/16/2009 White Blood Count 4.1 CUMM Low 4.8- 10.8 Red Cell Count 5.19 CUMM 4.6-6.2 Hemoglobin 15.9 g/dL 14.0-18.0 Hematocrit 47 % 42-52 Mean Corpuscular Volume 90 um3 80-94 Mean Corpuscular Hemoglob 31 pg 27-31 Mean Corpuscular HGB Cone 34 g/dL 32-36 Redcell Distribution WDTH 13 % 10.5-15 Platelet Count 320 CUMM 150-450 Mean Platelet Volume 7.6 um3 7.4-10.4 Gran % 47.0 % 38-83 Lymph % 40.7 % 25-47 Mononuclear % 8.8 % 1-9 Eosinophil % 2.8 % 0-6 Basophil % 0.7 % 0-2 Abs Lymphs 1.7 1.0-4.8 Abs Mononuclear 0.4 0-0.8 Absolute Neutrophil Count 1.9 1.5-7.7 Abs Eosinophils 0.1 0-0.6 Abs Basophils 0 0-0.2 CBC With Manual Diff 02/21/2009 White Blood Count 4.2 CUMM Low 4.8-10.8 47 Red Cell Count 5.09 CUMM 4.6-6.2 47 Hemoglobin 16.0 g/dL 14.0-18.0 47 Hematocrit 45 % 42-52 47 Mean Corpuscular Volume 88 um3 80-94 47 Mean Corpuscular Hemoglob 32 pg High 27-31 47 Mean Corpuscular HGB Cone 36 g/dL 32-36 47 Redcell Distribution WDTH 12 % 10.5-15 47 Platelet Count 308 CUMM 150-450 47 Mean Platelet Volume 7.5 um3 7.4-10.4 47 Polysegmented Neutrophil 41 % 38-83 47 Band Neutrophil 2 % 0-8 47 Lymphocyte 46 % 25-47 47 Monocyte 6 % 0-13 47 Eosenophil 2 % 0-6 47 Atypical Lymph 3 % 0-6 47 Absolute Neutrophil Count 1.8 47 RBC Morphology NORMAL 47 Manual Diff Comments (SEE NOTE) 47, 48 Liver Function Panel 02/21/2009 Total Protein 6.4 GM/DL 6.2-8.1 47 Albumin 3.8 GM/DL 3.6-5.4 47 Globulin 2.6 GM/DL 2-4 47 Albumin/Globulin Ratio 1.5 1-3 47 Bilirubin Total 0.8 mg/dL 0.4-1.5 47, 49 Bilirubin Direct 0.1 mg/dL 0.1-0.5 47 Indirect Bilirubin 0.7 mg/dL 0.1-0.75 47 Alkaline Phosphatase 60 U/L 39-117 47 Alt (SGPT) 20 U/L 17-63 47 Ast (Sgot) 22 U/L 12-42 47 Laboratory test finding 02/21/2009 LDL Direct 146 mg/dL High Less Than 100 47, 50 HDL 29 mg/dL Low 40-60 47, 51 Lipid Profile (Trig/Chol/HDL) 04/11/2008 Triglyceride 96 mg/dL 40-200 47 Cholesterol 189 mg/dL Less Than 200 47, 52 High Density Lipoprotein 29 mg/dL Low 40-60 47, 53 Cholesterol/HDL Ratio 6.52 AVERAGE High 1-4.97 47 Low Density Lipoprotein 141 mg/dL High Less Than 130 47, 54 Basic Metabolic Panel 04/11/2008 Sodium 139 mmol/L 135-145 47 Potassium 4.4 mmol/L 3.5-5.0 47 Chloride 106 mmol/L 101-111 47 Co2 (Carbon Dioxide) 30.0 mmol/L 22-32 47 Anion Gap 3.0 mmol/L 2-11 47, 55 Glucose 87 mg/dL 70-100 47, 56 BUN 13 mg/dL 6-24 47 Creatinine 1.1 mg/dL 0.5-1.4 47 One Over Creatinine 0.90 47 BUN/Creatinine Ratio 11.8 8-20 47 Calcium 9.1 mg/dL 8.1-9.9 47, 57 Hemogram 04/11/2008 White Blood Count 4.7 CUMM Low 4.8-10.8 47 Red Cell Count 4.97 CUMM 4.6-6.2 47 Hemoglobin 15.2 g/dL 14.0-18.0 47 Hematocrit 44 % 42-52 47 Mean Corpuscular Volume 88 um3 80-94 47 Mean Corpuscular Hemoglob 31 pg 27-31 47 Mean Corpuscular HGB Cone 35 g/dL 32-36 47 Platelet Count 308 CUMM 150-450 47 1 [id number] Gram stain not recommended for this specimen source. 2 SEE RESULT BELOW Name: DASFLORIN : [address]: Drea Gatica MD Acct: [id number] Unit: [id number] AGE: 41 Location: [facility] Re02/19/17 SEX: M Status: DEP ER SPEC: [id number] NICHELLE: 02/19/17-[address] [facility] [address]: Drea Gatica MD REQ: [id number] RECD: 02/20/17-5099 STATUS: COMP [facility] DR: Radha Rahman MD _ SOURCE: MARYE,LEFT SPDESC: ORDERED: Culture Stain COMMENTS: [id number] Gram stain not recommended for this specimen source. Procedure Result Reported Site Wound/Misc Gram Stain Final 02/20/17- 1410 ML Test not performed Wound/Misc Culture Final 02/22/17- 1207 ML Organism 1 NORMAL YESENIA Quantity 1+ * ML - MAIN LAB ([facility]) . END OF REPORT * ML=Testing performed at Main Lab DEPARTMENT OF PATHOLOGY, [address] [place] [address] Jose Maria Polanco M.D. Director [facility] # [id number] 3 Because ethnic data is not always readily available, this report includes an eGFR for both -Americans and non- Americans. The National Kidney Disease Education Program (NKDEP) does not endorse the use of the MDRD equation for patients that are not between the ages of 18 and 70, are , have extremes of body size, muscle mass, or nutritional status, or are non- or non-. According to the National Kidney Foundation, irrespective of diagnosis, the stage of the disease is based on the level of kidney function: Stage Description GFR(mL/min/1.73 m(2)) 1 Kidney damage with normal or decreased GFR 90 2 Kidney damage with mild decrease in GFR 60-89 3 Moderate decrease in GFR 30-59 4 Severe decrease in GFR 15-29 5 Kidney failure <15 (or dialysis) 4 Normal Range 180 to 914 Indeterminate Range 145 to 180 Deficient Range <145 5 Desirable <200 Borderline high 200-239 High >239 6 Low <40 Desirable: 40-60 High: >60 7 Desirable <150 Borderline high 150-199 High 200-499 Very High >500 8 Desirable: <100 mg/dL Near Optimal: 100-129 mg/dL Borderline High: 130-159 mg/dL High: 160-189 mg/dL Very High: >189 mg/dL 9 Comment: abscess post neck [id number] 10 SEE RESULT BELOW Name: FLORIN DAS : [address]: Cally Walker MD Acct: [id number] Unit: [id number] AGE: 41 Location: [facility] Re10/22/16 SEX: M Status: DEP ER SPEC: [id number] NICHELLE: 10/22/16-[address]: Cally Walker MD REQ: [id number] RECD: 10/23/16 STATUS: RES OTHR DR: Radha Rahman MD _ SOURCE: NECK SPDESC: ORDERED: Culture Stain COMMENTS: Comment: abscess post neck [id number] Procedure Result Reported Site Wound/Misc Gram Stain Final 10/23/16- 1940 ML 2+ Neutrophils 1+ Epithelial Cells 3+ Gram Positive Cocci in Clusters, resembling Staph Wound/Misc Culture PENDING * ML - MAIN LAB ([facility]) . END OF REPORT * ML=Testing performed at Main Lab DEPARTMENT OF PATHOLOGY, [address] [place] [address] Jose Maria Polanco M.D. Director [facility] # [id number] 11 SEE RESULT BELOW Name: FLORIN DAS : [address]: Cally Walker MD Acct: [id number] Unit: [id number] AGE: 41 Location: [facility] Re10/22/16 SEX: M Status: DEP ER SPEC: [id number] NICHELLE: 10/22/16-1800 [facility] [address]: Cally Walker MD REQ: [id number] RECD: 10/23/16-140 STATUS: [facility]OREZNA[facility] DR: Radha Rahman MD _ SOURCE: NECK SPDESC: ORDERED: MRSA/SA SSTI, Culture Stain COMMENTS: Comment: abscess post neck [id number] Verbal to [id number] by [id number] at 2124 on 10/23/16. Results read back accurately. Procedure Result Reported Site MRSA/S. aureus SSTI PCR Final 10/23/16- 2123 ML Organism 1 MRSA NEGATIVE Organism 2 S.AUREUS POSITIVE Wound/Misc Gram Stain Final 10/23/16- 1940 ML 2+ Neutrophils 1+ Epithelial Cells 3+ Gram Positive Cocci in Clusters, resembling Staph Wound/Misc Culture Final 10/25/16- 857 ML Organism 1 STAPHYLOCOCCUS AUREUS Quantity 2+ 1. STAPHYLOCOCCUS AUREUS M.I.C. RX --------- ------ Penicillin >=0.5 R Clindamycin <=0.25 S Erythromycin >=8 R Gentamicin <=0.5 S Linezolid 2 S Nitrofurantoin <=16 S Oxacillin <=0.25 S * Quinupristin/Dalfopristin 0.5 S CONTINUED ON NEXT PAGE * ML=Testing performed at Main Lab DEPARTMENT OF PATHOLOGY, [address] [place] [address] Jose Maria Polanco M.D. Director [facility] # [id number] Patient: FLORIN DAS [id number] (Continued) Specimen: [id number] Collected: 10/22/16 Received: 10/23/16 (Continued) Procedure Result Reported Site Wound/Misc Culture Final (continued) 10/25/16- 857 1. STAPHYLOCOCCUS AUREUS (continued) M.I.C. RX --------- ------ Rifampin <=0.5 S Tetracycline <=1 S Doxycycline - Deduced S * Minocycline - Deduced S Trimethoprim/Sulfamethoxazole <=10 S Vancomycin 1 S Imipenem-Deduced S * Ampicillin/Sulbactam-Deduced S Cefazolin-Deduced S * These antibiotics are not available in the [facility] Formulary Contact the Microbiology Department for any additional antibiotic reporting. * ML - MAIN LAB ([facility]) . END OF REPORT * ML=Testing performed at Main Lab DEPARTMENT OF PATHOLOGY, [address] [place] [address] Jose Maria Polanco M.D. Director [facility] # [id number] 12 PT IS FASTING 13 Because ethnic data is not always readily available, this report includes an eGFR for both -Americans and non- Americans. The National Kidney Disease Education Program (NKDEP) does not endorse the use of the MDRD equation for patients that are not between the ages of 18 and 70, are , have extremes of body size, muscle mass, or nutritional status, or are non- or non-. According to the National Kidney Foundation, irrespective of diagnosis, the stage of the disease is based on the level of kidney function: Stage Description GFR(mL/min/1.73 m(2)) 1 Kidney damage with normal or decreased GFR 90 2 Kidney damage with mild decrease in GFR 60-89 3 Moderate decrease in GFR 30-59 4 Severe decrease in GFR 15-29 5 Kidney failure <15 (or dialysis) 14 Desirable <150 Borderline high 150-199 High 200-499 Very High >500 15 Desirable <200 Borderline high 200-239 High >239 16 Low <40 Desirable: 40-60 High: >60 17 Desirable: <100 mg/dL Near Optimal: 100-129 mg/dL Borderline High: 130-159 mg/dL High: 160-189 mg/dL Very High: >189 mg/dL 18 Normal Range 180 to 914 Indeterminate Range 145 to 180 Deficient Range <145 19 PT IS FASTING 20 Desirable <150 Borderline high 150-199 High 200-499 Very High >500 21 Desirable <200 Borderline high 200-239 High >239 22 Low <40 Desirable: 40-60 High: >60 23 Unable to calculate LDL as triglyceride is > 400 24 Because ethnic data is not always readily available, this report includes an eGFR for both -Americans and non- Americans. The National Kidney Disease Education Program (NKDEP) does not endorse the use of the MDRD equation for patients that are not between the ages of 18 and 70, are , have extremes of body size, muscle mass, or nutritional status, or are non- or non-. According to the National Kidney Foundation, irrespective of diagnosis, the stage of the disease is based on the level of kidney function: Stage Description GFR(mL/min/1.73 m(2)) 1 Kidney damage with normal or decreased GFR 90 2 Kidney damage with mild decrease in GFR 60-89 3 Moderate decrease in GFR 30-59 4 Severe decrease in GFR 15-29 5 Kidney failure <15 (or dialysis) 25 Because ethnic data is not always readily available, this report includes an eGFR for both -Americans and non- Americans. The National Kidney Disease Education Program (NKDEP) does not endorse the use of the MDRD equation for patients that are not between the ages of 18 and 70, are , have extremes of body size, muscle mass, or nutritional status, or are non- or non-. According to the National Kidney Foundation, irrespective of diagnosis, the stage of the disease is based on the level of kidney function: Stage Description GFR(mL/min/1.73 m(2)) 1 Kidney damage with normal or decreased GFR 90 2 Kidney damage with mild decrease in GFR 60-89 3 Moderate decrease in GFR 30-59 4 Severe decrease in GFR 15-29 5 Kidney failure <15 (or dialysis) 26 Desirable <150 Borderline high 150-199 High 200-499 Very High >500 27 Desirable <200 Borderline high 200-239 High >239 28 Low <40 Desirable: 40-60 High: >60 29 Desirable <100 Near Optimal 100-129 Borderline high 130-159 High 160-189 Very High >189 30 Normal Range 180 to 914 Indeterminate Range 145 to 180 Deficient Range <145 31 PT IS FASTING 32 -- REFERENCE VALUE -- 25-HYDROXY D TOTAL (D2+D3) Optimum levels in the healthy population are 20-50, patients with bone disease may benefit from higher levels within this range. Test Performed by: [facility] - [address] [address] Milking Machine Technician: Neal Berger III, M.D. 33 RUN DATE: 09/19/13 [facility] LIVE PAGE 1 RUN TIME: [address] [place] [id number] Specimen Inquiry Name: FLORIN DAS : [address]: John Nuñez MD Acct: [id number] Unit: [id number] AGE: 38 Location: [facility] Re09/17/13 SEX: M Status: DEP ER SPEC: [id number] NICHELLE: 09/17/13-814 [facility] DR: John Nuñez MD REQ: [id number] RECD: 09/17/13 STATUS: ALEC LORENZANA DR: Radha Rahman MD _ SOURCE: THROAT SPDESC: ORDERED: Throat Beta Str Procedure Result Verified Site Throat Beta Strep Culture Final 09/19/13- 826 ML Negative For Group A Beta Streptococcus END OF REPORT * ML=Testing performed at Main Lab DEPARTMENT OF PATHOLOGY, [address] [place] [address] Jose Maria Polanco M.D. Director [facility] Permit #[id number] 34 Because ethnic data is not always readily available, this report includes an eGFR for both -Americans and non- Americans. The National Kidney Disease Education Program (NKDEP) does not endorse the use of the MDRD equation for patients that are not between the ages of 18 and 70, are , have extremes of body size, muscle mass, or nutritional status, or are non- or non-. According to the National Kidney Foundation, irrespective of diagnosis, the stage of the disease is based on the level of kidney function: Stage Description GFR(mL/min/1.73 m(2)) 1 Kidney damage with normal or decreased GFR 90 2 Kidney damage with mild decrease in GFR 60-89 3 Moderate decrease in GFR 30-59 4 Severe decrease in GFR 15-29 5 Kidney failure <15 (or dialysis) 35 HDL Interpretation: Undesirable: High Risk: Less than 40 MG/DL Desirable: Low Risk: Greater than 60 MG/DL 36 LDL Interpretation: Low Risk Optimal Level: LDL Less than 100 MG/DL Near or Above Optimal: LDL 100-129 MG/DL Borderline High Risk: LDL 130-159 MG/DL High Risk: LDL 160-189 MG/DL Very High Risk: LDL Greater than 189 MG/DL 37 -- REFERENCE VALUE -- 25-HYDROXY D TOTAL (D2+D3) Optimum levels in the normal population are 25-80 Test Performed by: [facility] [address] [address] Milking Machine Technician: Neal Berger III, M.D. 38 Anion gap measurement may be of limited value in the presence of any alkalosis, especially in a combined acid base disorder. . 39 A metabolite of Naproxen, O-desmethylnaproxen, has been shown to interfere with the Jendrassik-Lowman method for measuring total bilirubin. Samples from patients who have taken Naproxen have shown spurious elevation in total bilirubin levels. 40 Because ethnic data is not always readily available, this report includes an eGFR for both -Americans and non- Americans. The National Kidney Disease Education Program (NKDEP) does not endorse the use of the MDRD equation for patients that are not between the ages of 18 and 70, are , have extremes of body size, muscle mass, or nutritional status, or are non- or non-. According to the National Kidney Foundation, irrespective of diagnosis, the stage of the disease is based on the level of kidney function: Stage Description GFR(mL/min/1.73 m(2)) 1 Kidney damage with normal or decreased GFR 90 2 Kidney damage with mild decrease in GFR 60-89 3 Moderate decrease in GFR 30-59 4 Severe decrease in GFR 15-29 5 Kidney failure <15 (or dialysis) 41 CHOLESTEROL INTERPRETATION: Desirable: Less than 200 MG/DL Borderline-High Risk: 200-239 MG/DL High-Risk: 240 MG/DL and over 42 HDL INTERPRETATION: Undesirable: High Risk: Less than 40 MG/DL Desirable: Low Risk: Greater than 60 MG/DL 43 LDL INTERPRETATION: Low Risk Optimal Level: LDL Less than 100 MG/DL Near or Above Optimal: LDL 100-129 MG/DL Borderline High Risk: LDL 130-159 MG/DL High Risk: LDL 160-189 MG/DL Very High Risk: LDL Greater than 189 MG/DL 44 LDL INTERPRETATION: Low Risk Optimal Level: LDL Less than 100 MG/DL Near or Above Optimal: LDL 100-129 MG/DL Borderline High Risk: LDL 130-159 MG/DL High Risk: LDL 160-189 MG/DL Very High Risk: LDL Greater than 189 MG/DL 45 HDL INTERPRETATION: Undesirable: High Risk: Less than 40 MG/DL Desirable: Low Risk: Greater than 60 MG/DL 46 NORMAL ELECTROPHORETIC PATTERN. 47 FASTING 48 CBC and smear reviewed. Inverted PMN/lymph ratio noted. No blasts seen. REVIEWED BY JOSE MARIA POLANCO MD 49 A metabolite of Naproxen, O-desmethylnaproxen, has been shown to interfere with the Jendrassik-Lowman method for measuring total bilirubin. Samples from patients who have taken Naproxen have shown spurious elevation in total bilirubin levels. 50 LDL INTERPRETATION: Low Risk Optimal Level: LDL Less than 100 MG/DL Near or Above Optimal: LDL 100-129 MG/DL Borderline High Risk: LDL 130-159 MG/DL High Risk: LDL 160-189 MG/DL Very High Risk: LDL Greater than 189 MG/DL 51 HDL INTERPRETATION: Undesirable: High Risk: Less than 40 MG/DL Desirable: Low Risk: Greater than 60 MG/DL 52 CHOLESTEROL INTERPRETATION: Desirable: Less than 200 MG/DL Borderline-High Risk: 200-239 MG/DL High-Risk: 240 MG/DL and over 53 HDL INTERPRETATION: Undesirable: High Risk: Less than 40 MG/DL Desirable: Low Risk: Greater than 60 MG/DL 54 LDL INTERPRETATION: Low Risk Optimal Level: LDL Less than 100 MG/DL Near or Above Optimal: LDL 100-129 MG/DL Borderline High Risk: LDL 130-159 MG/DL High Risk: LDL 160-189 MG/DL Very High Risk: LDL Greater than 189 MG/DL 55 Anion gap measurement may be of limited value in the presence of any alkalosis, especially in a combined acid base disorder. . 56 Note change in reference range as of 02/22/08. The change was based on recommendations from the [employer]. 57 Please note change in reference range effective 07 . Procedures Description No Information Encounters Type Date Location Provider CPT E/M Dx Office Visit 06/13/2017 12:40p [place] [address] R51 Office Visit 04/28/2017 12:00p [place] [address] J12.9 Office Visit 12/08/2016 11:20a [place] [address] Z00.01 E78.2 Office Visit 12/03/2015 11:00a [place] [address] Z00.01 E78.2 D72.819 E55.9 Office Visit 11/29/2014 8:40a Main Office LAMINE Christianson-Roshan 38678 V70.0 272.2 288.50 268.9 Office Visit 11/13/2013 3:40p [place] [address] V70.0 Office Visit 10/11/2012 2:00p [place] [address] V70.0 272.2 288.50 268.9 V06.1 Office Visit 09/27/2011 9:40a [place] [address] V70.0 288.50 272.2 Office Visit 01/20/2010 12:20p [place] [address] 381.81 382.9 995.3 Office Visit 01/15/2010 9:00a [place] [address] 382.9 786.2 Office Visit 01/08/2010 11:00a [place] [address] 382.9 Office Visit 11/13/2009 11:40a [place] [address] 786.2 995.3 Office Visit 10/21/2009 12:00p [place] [address] 288.50 272.2 302.75 Office Visit 02/28/2009 11:00a [place] [address] 272.2 288.50 302.75 Office Visit 04/10/2008 11:00a [place] [address] V70.0 302.75 V03.7 Plan of Care Future Appointment(s):12/14/2017 11:20 am - Radha Rahman MD at Main [facility]6606/13/2017 - Radha Rahman, MDR51 HeadacheComments:When asked to read small print he had o move it away and was squinting. I feel that he should have his eyes examined and see if he needs to se reading glasses.If his eye examination is normal than he is to contact me if he is not better after some rest.Plan d/w in detail and he verbalized understanding.
[2017-06-23 12:06] LABS: ALT 19 U/L (7-52); AST 21 U/L (13-39); Albumin 4.2 g/dL (3.2-5.2); Alkaline Phosphatase 79 U/L (34-104); Anion Gap 5 mmol/L (2-11); BUN/Creatinine Ratio 15.4 (8-20); Blood Urea Nitrogen 16 mg/dL (6-24); C Reactive Protein < 1.00 mg/L (< 5.00); CO2 Carbon Dioxide 28 mmol/L (22-32); Calcium 9.1 mg/dL (8.6-10.3); Chloride 104 mmol/L (101-111); EGFR African American 100.7 (>60); EGFR Non-African American 78.3 (>60); Globulin 3.1 g/dL (2-4); Glucose 111 mg/dL (70-100); Potassium 3.7 mmol/L (3.5-5.0); Sodium 137 mmol/L (133-145); Total Protein 7.3 g/dL (6.4-8.9)
--- NOTE | 2017-06-23 12:23 | RAD ---
HISTORY: Headaches COMPARISONS: May 17, 2017 VIEWS: 4: Frontal dual-energy and lateral views of the chest. FINDINGS: CARDIOMEDIASTINAL SILHOUETTE: The cardiomediastinal silhouette is normal. FRANCHESKA: The francheska are normal. PLEURA: The costophrenic angles are sharp. No pleural abnormalities are noted. LUNG PARENCHYMA: The lungs are clear. ABDOMEN: The upper abdomen is clear. There is no subphrenic gas. BONES AND SOFT TISSUES: No bone or soft tissue abnormalities are noted. OTHER: None. IMPRESSION: NO ACTIVE CARDIOPULMONARY DISEASE.
[2017-06-23] MEDS ORDERED: Iohexol 300* (CONTRAST) 10 ML SDV IV ONE (13:18)
--- NOTE | 2017-06-23 13:49 | RAD ---
INDICATION: Optic nerve swelling COMPARISON: None TECHNIQUE: Noncontrast axial source images were acquired from the skull base to the vertex. Additional contrast-enhanced images were acquired following administration of 75 mL Omnipaque 300 FINDINGS: Ventricles/sulci: The ventricles and cisterns are normal in size and configuration for age. Brain parenchyma: There is no focal parenchymal finding, evidence of intracranial mass, or intracranial mass effect. Intracranial hemorrhage:None. Extra-axial spaces: There are no abnormal extra axial fluid collections or evidence of extra-axial mass. Calvarium: There is no calvarial fracture or other calvarial abnormality. Scalp: There is no evidence of scalp or extracalvarial soft tissue abnormality. Paranasal sinuses/mastoid: The paranasal sinuses and mastoid air cells are clear. Other: The globes are intact. There is no evidence of retrobulbar mass. The optic nerves and rectus muscles appear symmetric. MR is more sensitive means to evaluate the orbital structures.. IMPRESSION: NEGATIVE EXAMINATION
[2017-06-23] MEDS ORDERED: NS 0.9% 1000 ML* 1,000 ML IV ONE ×2 (14:18→15:31)
[2017-06-23] MEDS ORDERED: acetaZOLAMIDE TAB* 250 MG PO ONE (15:28)
--- NOTE | 2017-06-23 15:51 | PN ---
Progress Note - Progress Note Date of Service: 06/23/17 Note: Neurology Procedure Note: Procedure: Lumbar Puncture Performing Physician: Harjit Will M.D. Location: ED Room 5 Indication: Papilledema, headache Consent: Risks and benefits explained, consent signed, dated an in the chart. Risks include infection, spinal cord damage and nerve damage, headache, bleeding , local pain Time out: Done Opening Pressure: 55 cm H20 Closing Pressure 23 cm H20 Procedure: The patient was placed in the left lateral position. L3-4 interspace was palpated a the level of the iliac crest. The area was marked. Sterile technique was observed throughout. The area was cleaned with chloroprep scrub, sterile drape was placed. Good anesthesia was obtained with 3 cc of 1 % lidocaine without epi at the site. The spinal needle was introduced in 1 pass and clear spinal fluid was obtained. 4 tubes of 4-5 cc each, clear, colorless spinal fluid sent to lab for studies. A total of 23 cc fluid was removed. The spinal needle was withdrawn with no bleeding at the site. The patient tolerated the procedure well. The are was again cleaned and pressure dressing applied. The patient was instructed to remain flat for the next 1 hour and IV fluids were administered. The patient was instructed to avoid heavy lifting and rest today to avoid spinal headache. The patient was instructed to return to the ER with any worsening pain or headache, severe back pain, focal symptoms or fevers.
--- NOTE | 2017-06-23 16:09 | ED ---
Fortunato Golden Gabriel, scribed for Pawel Sosa MD on 06/23/17 at 1158 . Throat Pain/Nasal Congestion - HPI Summary HPI Summary: This patient is a 41 year old M presenting to [facility] with a chief complaint of a ROSARIO that began a month ago. He was seen at an [facility] who believes there is swelling in his optic nerves and was sent here for an evaluation, they also stated his eye pressure is 17 bilaterally. The patient rates the pain 1/10 in severity. Patient denies n/v/d, dizziness, numbness, weakness, ears ringing, and imbalance on ambulation. He states he has the ORSARIO every day and that when he looks up, to the left or to the right there is discomfort and pain. - History of Current Complaint Chief Complaint: EDEyeProblem Time Seen by Provider: 06/23/17 11:25 Hx Obtained From: Patient Onset/Duration: Lasting Weeks - 4, Still Present Severity: Mild Cough: None - Allergies/Home Medications Allergies/Adverse Reactions: Allergies Allergy/AdvReac Type Severity Reaction Status Date / Time No Known Allergies Allergy Verified 06/08/17 07:39 PMH/Surg Hx/FS Hx/Imm Hx Endocrine/Hematology History: Denies: Hx Diabetes, Hx Thyroid Disease Cardiovascular History: Denies: Hx Hypertension Respiratory History: Denies: Hx Asthma, Hx Chronic Obstructive Pulmonary Disease (COPD) GI History: Denies: Hx Ulcer - Surgical History Surgery Procedure, Year, and Place: LEFT ankle Infectious Disease History: No Infectious Disease History: Denies: Hx Clostridium Difficile, Hx Hepatitis, Hx Human Immunodeficiency Virus (HIV), Hx of Known/Suspected MRSA, Hx Shingles, Hx Tuberculosis, Hx Known/ Suspected VRE, Hx Known/Suspected VRSA, History Other Infectious Disease, Traveled Outside the [place] in Last 30 Days - Family History Known Family History: Positive: Diabetes, Other - CVA - Social History Alcohol Use: Occasionally Hx Substance Use: No Substance Use Type: Reports: None Hx Tobacco Use: No Smoking Status (MU): Never Smoked Tobacco Review of Systems Constitutional: Negative - imbalance on ambulation ENT: Negative - ringing in ears Positive: Other - eye pain when moving them up, left, and right Negative: Vomiting, Diarrhea, Nausea Neurological: Negative - dizziness Positive: Headache. Negative: Numbness All Other Systems Reviewed And Are Negative: Yes Physical Exam - Summary Physical Exam Summary: Appearance: Well appearing, no pain distress Skin: warm, dry, reflects adequate perfusion Head/face: normal Eyes: EOMI, ARMANDO ENT: ears are normal, eyes are pharmacologically dilated, showing optic disc swelling with small hemorrhages. The globes are soft, temporal arteries are non- tender and the neck shows no signs of meningitis. Neck: supple, non-tender Respiratory: CTA, breath sounds present Cardiovascular: RRR, pulses symmetrical Abdomen: non-tender, soft Bowel: present Musculoskeletal: normal, strength/ROM intact Neuro: normal, sensory motor intact, A&Ox Triage Information Reviewed: Yes Vital Signs On Initial Exam: Initial Vitals Temp Pulse Resp BP Pulse Ox 97.5 F 82 18 157/106 99 06/23/17 11:24 06/23/17 11:24 06/23/17 11:24 06/23/17 11:24 06/23/17 11:24 Vital Signs Reviewed: Yes - David Coma Scale Coma Scale Total: 15 Procedures - Lumbar Puncture Position: Sitting, Other - lying on left side Aseptic Technique: Lidocaine Anesthesia Used: 1.0% Lido Spinal Needle Used: Other - 25 Lumbar Puncture Note: There was two attempts while sitting and two while laying, the patient is getting vagal. We are unable to access spinal fluid. Diagnostics - Vital Signs Vital Signs Temp Pulse Resp BP Pulse Ox 06/23/17 11:24 97.5 F 82 18 157/106 99 - Laboratory Lab Results: Lab Results 06/23/17 Range/Units 11:37 WBC 4.2 (3.5-10.8) 10^3/ul RBC 5.30 (4.0-5.4) 10^6/ul Hgb 15.8 (14.0-18.0) g/dl Hct 47 (42-52) % MCV 88 (80-94) fL MCH 30 (27-31) pg MCHC 34 (31-36) g/dl RDW 13 (10.5-15) % Plt Count 352 (150-450) 10^3/ul MPV 8 (7.4-10.4) um3 Neut % (Auto) 46.2 (38-83) % Lymph % (Auto) 40.7 (25-47) % Morris % (Auto) 9.8 H (1-9) % Eos % (Auto) 1.9 (0-6) % Baso % (Auto) 1.4 (0-2) % Absolute Neuts (auto) 1.9 (1.5-7.7) 10^3/ul Absolute Lymphs (auto) 1.7 (1.0-4.8) 10^3/ul Absolute Monos (auto) 0.4 (0-0.8) 10^3/ul Absolute Eos (auto) 0.1 (0-0.6) 10^3/ul Absolute Basos (auto) 0.1 (0-0.2) 10^3/ul Absolute Nucleated RBC 0 10^3/ul Nucleated RBC % 0.1 Result Diagrams: 06/23/17 11:37 06/23/17 11:37 Lab Statement: Any lab studies that have been ordered have been reviewed, and results considered in the medical decision making process. - Radiology CXR Radiology Interpretation Completed By: Radiologist - NO ACTIVE CARDIOPULMONARY DISEASE. ED physician has reviewed this radiology report. - CT CT brain CT Interpretation Completed By: Radiologist - NEGATIVE EXAMINATION ED physician has reviewed this radiology report. - EKG 1138 Cardiac Rate: NL EKG Rhythm: Sinus Rhythm - at [address] Segment: Normal EKG Interpretation: nml axis, nml interval EENT Course/Dx - Course Course Of Treatment: Pt sent with swollen optic disks. Concern for space occupying lesion. CT with and without contrast of the brain was NEG for lesion. LP was then performed -- but I had difficulty with obtaining specimen as pt was quite vagal. Neurologist was in the ER and was able get specimen. Opening pressure was grossly elevated at 53. Started DIAMOX. Contacted Dr. Recio who will f/u in the next 2wks. Neuro will see outpt. Confirmed diagnosis IIHTN. Assessment/Plan: Opening pressure for the lumbar puncture was is 53 - Diagnoses Provider Diagnoses: Idiopathic intracranial hypertension - Provider Notifications Discussed Care Of Patient With: Mary Will Time Discussed With Above Provider: 14:28 Instructed by Provider To: Other - Dr. Will has agreed to come see the patient and perform a spinal tap. - Critical Care Time Critical Care Time: 30-74 min - CCT is EXCLUSIVE of separately billable procedures 30 min. Includes advanced testing and MDM Discharge - Discharge Plan Condition: Improved Disposition: HOME Prescriptions: Acetazolamide 250 mg PO BID #60 tab Patient Education Materials: Idiopathic Intracranial Hypertension (ED) Referrals: Mary Will MD [Medical Doctor] - Radha Rahman MD [Primary Care Provider] - Additional Instructions: Return with severe headaches, vomiting, worse or other concerns. See your doctor for an outpatient MRI. See your eye doctor for reevaluation soon. Consult Consult: Dr Recio OPHTHO -- will see closely in f/u The documentation as recorded by the Fortunato brothers Gabriel accurately reflects the service I personally performed and the decisions made by me, Pawel Sosa MD.
[2017-06-23 16:29] LABS: CSF Glucose 66 mg/dL (40-70)
[2017-06-23 16:49] VITALS: BP 133/81
[2017-06-23 17:08] LABS: Body Fluid Appearance Clear
[2017-06-23 17:16] LABS: BF RBC Count #1 2; BF WBC Count #1 2; BF WBC Count #2 1; Body Fluid WBC 2 /mcL; WBC counts within 15%? Yes
[2017-06-23 17:17] LABS: BF RBC Count #2 3; RBC counts within 6%? Yes
[2017-06-23 17:40] LABS: Body Fluid Total Cells Counted 76
[2017-06-24 15:02] LABS: Albumin 3.6 g/dL (3.4-4.7); Gamma Globulin 1.5 g/dL (0.6-1.6); Total Protein(PEP) 7.4 g/dL (6.3 - 7.9)
[2017-06-24 15:10] LABS: CSF VDRL Negative (Negative)
[2017-06-24 15:28] LABS: Albumin 4840 mg/dL; CSF Albumin 32.5 mg/dL (<=27.0); CSF IgG/Albumin Ratio 0.15 (<=0.21); CSF Immunoglobulin G Index 0.54 (<=0.85); CSF Immunoglobulin G Synthesis 1.73 mg/24 h (<=12); Immunoglobulin G 1360 mg/dL (767 - 1590); Serum IgG/Albumin Ratio 0.28 (<=0.40)
[2017-06-24 17:16] LABS: CSF Oligoclonal Bands 0 bands; Oligoclonal Proteins Interpret 0 bands (<4); Serum Oligoclonal Bands 0 bands
[2017-06-25 01:12] LABS: CSF West Nile Virus RNA (PCR) Negative (Negative); West Nile Virus Source CSF
== END 2017-06-23 16:48 | disposition home or self-care (01) ==
LOC: ED 11:23
DX: G93.2 Benign intracranial hypertension (principal)
CPT/HCPCS: 36415; 62270; 70470; 71020; 80053; 82164; 82784; 82945; 83916; 84155; 84157; 84165; 85025; 85610; 86140; 86592; 86788; 86789; 87070; 87205; 87798; 87899; 89051; 93005; 96360; 96374; 99285; A9270-GY; Q9967

== ENCOUNTER 2017-06-26 03:30 | Emergency (ER) | payer BC ==
[2017-06-26] MEDS ORDERED: NS 0.9% 1000 ML* 1,000 ML IV SCH (04:00)
[2017-06-26 04:05] LABS: Hematocrit 49 % (42-52); Hemoglobin 16.8 g/dl (14.0-18.0); Mean Corpuscular HGB Conc 34 g/dl (31-36); Mean Corpuscular Hemoglobin 30 pg (27-31); Mean Corpuscular Volume 88 fL (80-94); Mean Platelet Volume 8 um3 (7.4-10.4); Red Blood Count 5.54 10^6/ul (4.0-5.4); Red Cell Distribution Width 14 % (10.5-15); White Blood Count 9.2 10^3/ul (3.5-10.8)
[2017-06-26 04:22] LABS: Albumin 4.2 g/dL (3.2-5.2); BUN/Creatinine Ratio 10.8 (8-20); Calcium 9.3 mg/dL (8.6-10.3); EGFR African American 77.9 (>60); EGFR Non-African American 60.5 (>60); Globulin 3.4 g/dL (2-4); Potassium 3.3 mmol/L (3.5-5.0); Total Bilirubin 0.7 mg/dL (0.2-1.0); Total Protein 7.6 g/dL (6.4-8.9)
[2017-06-26] MEDS ORDERED: Iohexol 350* (CONTRAST) 500 ML MDV IV ONE (05:24)
[2017-06-26] MEDS ORDERED: oxyCODONE/Acetamin 5/325 MG* TAB PO ONE (06:11)
--- NOTE | 2017-06-26 06:44 | ED ---
Evelio Golden Tiffany scribsean for Al Thomas on 06/26/17 at 0356 . Neurological HPI - HPI Summary HPI Summary: This patient is a 41 year old M presenting to [facility] accompanied by with a chief complaint of left sided numbness since 0230 this morning. The patient rates the pain 6/10 in severity. Symptoms aggravated by nothing. Symptoms alleviated by nothing. Patient reports headache, tingliness in left leg and weakness in left arm. 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 Patient went to bed at 21:30 last night. - History of Current Complaint Chief Complaint: EDWeakness Stated Complaint: STROKE LIKE SYMPTOMS Time Seen by Provider: 06/26/17 03:43 Hx Obtained From: Patient Onset/Duration: Started hours ago - 1.5 hours ago, Still Present Current Severity: Moderate Pain Intensity: 6 Pain Scale Used: 0-10 Numeric Aggravating: Nothing Alleviating: Nothing Associated Signs and Symptoms: Positive: Headache, Weakness, Numbness - Allergy/Home Medications Allergies/Adverse Reactions: Allergies Allergy/AdvReac Type Severity Reaction Status Date / Time No Known Allergies Allergy Verified 06/08/17 07:39 PMH/Surg Hx/FS Hx/Imm Hx Previously Healthy: No Endocrine/Hematology History: Denies: Hx Diabetes, Hx Thyroid Disease Cardiovascular History: Reports: Other Cardiovascular Problems/Disorders - idopathic intercranial hypertension Respiratory History: Denies: Hx Asthma, Hx Chronic Obstructive Pulmonary Disease (COPD) GI History: Denies: Hx Ulcer History: Denies: Hx Renal Disease - Surgical History Surgery Procedure, Year, and Place: LEFT ankle Infectious Disease History: No Infectious Disease History: Denies: Hx Clostridium Difficile, Hx Hepatitis, Hx Human Immunodeficiency Virus (HIV), Hx of Known/Suspected MRSA, Hx Shingles, Hx Tuberculosis, Hx Known/ Suspected VRE, Hx Known/Suspected VRSA, History Other Infectious Disease, Traveled Outside the [place] in Last 30 Days - Family History Known Family History: Positive: Diabetes, Other - CVA - Social History Alcohol Use: Occasionally Hx Substance Use: No Substance Use Type: Reports: None Hx Tobacco Use: No Smoking Status (MU): Never Smoked Tobacco Review of Systems Positive: Other - Clear speech Neurological: Other - left sided numbness, tingliness in left leg, 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 Positive: Headache, Weakness - in left arm All Other Systems Reviewed And Are Negative: Yes Physical Exam - Summary Physical Exam Summary: Appearance: Well appearing, no pain distress Skin: warm, dry, reflects adequate perfusion Head/face: normal Eyes: EOMI, ARMANDO ENT: normal Neck: supple, non-tender Respiratory: CTA, breath sounds present Cardiovascular: RRR, pulses symmetrical Abdomen: non-tender, soft Bowel: present Musculoskeletal: normal, strength/ROM intact Neuro: normal, sensory motor intact, A&Ox3 Triage Information Reviewed: Yes Vital Signs On Initial Exam: Initial Vitals Temp Pulse Resp BP Pulse Ox 97.3 F 122 18 162/87 98 06/26/17 03:32 06/26/17 03:32 06/26/17 03:32 06/26/17 03:32 06/26/17 03:32 Vital Signs Reviewed: Yes Diagnostics - Vital Signs Vital Signs Temp Pulse Resp BP Pulse Ox 06/26/17 03:32 97.3 F 122 18 162/87 98 - Laboratory Lab Results: Lab Results 06/26/17 06/26/17 06/26/17 Range/Units 03:56 03:56 03:56 WBC 9.2 (3.5-10.8) 10^3/ul RBC 5.54 H (4.0-5.4) 10^6/ul Hgb 16.8 (14.0-18.0) g/dl Hct 49 (42-52) % MCV 88 (80-94) fL MCH 30 (27-31) pg MCHC 34 (31-36) g/dl RDW 14 (10.5-15) % Plt Count 309 (150-450) 10^3/ul MPV 8 (7.4-10.4) um3 Neut % (Auto) 73.2 (38-83) % Lymph % (Auto) 16.6 L (25-47) % Calhoun % (Auto) 9.1 H (1-9) % Eos % (Auto) 0.6 (0-6) % Baso % (Auto) 0.5 (0-2) % Absolute Neuts (auto) 6.7 (1.5-7.7) 10^3/ul Absolute Lymphs (auto) 1.5 (1.0-4.8) 10^3/ul Absolute Monos (auto) 0.8 (0-0.8) 10^3/ul Absolute Eos (auto) 0.1 (0-0.6) 10^3/ul Absolute Basos (auto) 0 (0-0.2) 10^3/ul Absolute Nucleated RBC 0.01 10^3/ul Nucleated RBC % 0.2 INR (Anticoag Therapy) 0.86 (0.77-1.02) APTT 26.9 (26.0-36.3) seconds Sodium 137 (133-145) mmol/L Potassium 3.3 L (3.5-5.0) mmol/L Chloride 109 (101-111) mmol/L Carbon Dioxide 20 L (22-32) mmol/L Anion Gap 8 (2-11) mmol/L BUN 14 (6-24) mg/dL Creatinine 1.30 H (0.67-1.17) mg/dL Est GFR ( Amer) 77.9 (>60) Est GFR (Non-Af Amer) 60.5 (>60) BUN/Creatinine Ratio 10.8 (8-20) Glucose 127 H (70-100) mg/dL Calcium 9.3 (8.6-10.3) mg/dL Total Bilirubin 0.70 (0.2-1.0) mg/dL AST 18 (13-39) U/L ALT 22 (7-52) U/L Alkaline Phosphatase 79 (34-104) U/L Total Protein 7.6 (6.4-8.9) g/dL Albumin 4.2 (3.2-5.2) g/dL Globulin 3.4 (2-4) g/dL Albumin/Globulin Ratio 1.2 (1-3) Blood Type Antibody Screen 06/26/17 Range/Units 03:56 WBC (3.5-10.8) 10^3/ul RBC (4.0-5.4) 10^6/ul Hgb (14.0-18.0) g/dl Hct (42-52) % MCV (80-94) fL MCH (27-31) pg MCHC (31-36) g/dl RDW (10.5-15) % Plt Count (150-450) 10^3/ul MPV (7.4-10.4) um3 Neut % (Auto) (38-83) % Lymph % (Auto) (25-47) % Calhoun % (Auto) (1-9) % Eos % (Auto) (0-6) % Baso % (Auto) (0-2) % Absolute Neuts (auto) (1.5-7.7) 10^3/ul Absolute Lymphs (auto) (1.0-4.8) 10^3/ul Absolute Monos (auto) (0-0.8) 10^3/ul Absolute Eos (auto) (0-0.6) 10^3/ul Absolute Basos (auto) (0-0.2) 10^3/ul Absolute Nucleated RBC 10^3/ul Nucleated RBC % INR (Anticoag Therapy) (0.77-1.02) APTT (26.0-36.3) seconds Sodium (133-145) mmol/L Potassium (3.5-5.0) mmol/L Chloride (101-111) mmol/L Carbon Dioxide (22-32) mmol/L Anion Gap (2-11) mmol/L BUN (6-24) mg/dL Creatinine (0.67-1.17) mg/dL Est GFR ( Amer) (>60) Est GFR (Non-Af Amer) (>60) BUN/Creatinine Ratio (8-20) Glucose (70-100) mg/dL Calcium (8.6-10.3) mg/dL Total Bilirubin (0.2-1.0) mg/dL AST (13-39) U/L ALT (7-52) U/L Alkaline Phosphatase (34-104) U/L Total Protein (6.4-8.9) g/dL Albumin (3.2-5.2) g/dL Globulin (2-4) g/dL Albumin/Globulin Ratio (1-3) Blood Type A Positive Antibody Screen Negative Result Diagrams: 06/26/17 03:56 06/26/17 03:56 Lab Statement: Any lab studies that have been ordered have been reviewed, and results considered in the medical decision making process. - CT Brain CT Interpretation Completed By: Radiologist - Normal head. ED physician has reviewed this radiology report. CTA Head/Neck CT Interpretation Completed By: Radiologist - Normal head. ED physician has reviewed this radiology report. Neck CT Interpretation Completed By: Radiologist - No vascular occlusion. ED physician has reviewed this report. - EKG 04:11 Cardiac Rate: NL EKG Rhythm: Sinus Rhythm EKG Interpretation: No acute changes Course/Dx - Course Course Of Treatment: This patient is a 41 year old M c/o left sided numbness since 0230 this morning. An EKG reveals sinus rhythm and no acute changes. CT Brain reveals, per radiologist, Normal head. CTA Head/Neck reveals, per radiologist, Normal head. CT Neck reveals, per radiologist, no vascular occlusion. UA obtained. Neurology at [facility] advised that patient is not a CVA candidate so there is no need for a consult. Neurology at [facility] recommends admission. Patient will be admitted to incoming hospitalist at shift change. The patient is agreeable with this plan. - Differential Dx Differential Diagnoses Neuro: Positive: Cerebrovascular Accident, Headache, Intracranial Bleed, Transient Ischemic Attack - Diagnoses Provider Diagnoses: Headache, Intracranial hypertension - Physician Notifications Instructed by Provider To: Other - At 0415, neurology at [facility] advised that patient is not a CVA candidate so there is no need for a consult. Neurology at [facility] recommends admission. At 0600, Dr. Marrero (hospitalist) agreed to inform incoming hospitalist of patient admission. - Critical Care Time Critical Care Time: 30-74 min Discharge - Discharge Plan Condition: Fair Disposition: ADMITTED TO [facility] Discharge Disposition Comment: Pt will be admitted to incoming hospitalist Referrals: Radha Rahman MD [Primary Care Provider] - The documentation as recorded by the Evelio brothers Tiffany accurately reflects the service I personally performed and the decisions made by , Al Thomas.
[2017-06-26] MEDS ORDERED: Morphine INJ* 4 MG/ML 1 ML CARPUJECT IV ONE (08:03)
[2017-06-26] MEDS ORDERED: Ondansetron INJ* 2 MG/ML VIAL IV ONE (08:04)
[2017-06-26 08:12] LABS: Urine Bacteria Absent (Absent); Urine Bilirubin Negative (Negative); Urine Glucose Negative (Negative); Urine Nitrite Negative (Negative)
--- NOTE | 2017-06-26 09:31 | RAD ---
Indication: Stroke. Left-sided weakness. CT of the brain was performed without IV contrast. Intratesticular structures are midline. No midline shift is noted. There is no evidence of mass or hemorrhage. No other high or low density lesions are identified. Mastoid air cells and paranasal sinuses are unremarkable. IMPRESSION: No intracranial mass or hemorrhage is noted.
[2017-06-26] MEDS ORDERED: oxyCODONE TAB* 5 MG TAB PO PRN (09:46)
--- NOTE | 2017-06-26 09:59 | ADMNOTE ---
Subjective Date of Service: 06/26/17 Interval History: CONSULTATION HISTORY AND PHYSICAL EXAM: Ambulatory Orders Medication Instructions Recorded Ibuprofen TAB* [Motrin TAB* 600 MG] 600 mg PO DAILY PRN 06/08/17 Acetazolamide 250 mg PO BID #60 tab 06/23/17 Home Medications Medication Instructions Recorded Confirmed Type Ibuprofen TAB* [Motrin TAB* 600 MG] 600 mg PO DAILY PRN 06/08/17 06/26/17 History Acetazolamide 250 mg PO BID #60 tab 06/23/17 06/26/17 Rx HPI: Patient starating having headaches about a month ago, was found to have papilledema. He saw Dr. Will who did a lumbar puncture which shoed a pressure of 50 accoidng to the pt. About 2 AM today he had a severe headache and had L arm tingling and weakness It has improved since then. His headache is not related to position. Family History: Findings - Both parents A&W. ONe older brother A&W. Social History: Findings - Never smoked. No alcohol or drug abuse. 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 Lives with his who is his SDM. 2 children. Past Medical History: Findings - L ankle surgery, no hardware. No prior hospitalizations. Review of Systems - Measurements Intake and Output: Intake and Output Last 24 Hours 06/24/17 06/25/17 06/26/17 06/27/17 06:59 06:59 06:59 06:59 Weight 205 lb - Review of Systems Constitutional Symptoms: Negative: Weight Gain, Weight Loss, Weakness, Fatigue, Fever, Night Sweats, Unexplained Falls, Other Dermatology: Positive: Normal HEENT: Positive: Normal Eyes: Positive: Change in Vision Thyroid: Positive: Normal Pulmonary: Positive: Normal Cardiology: Positive: Normal Gastroenterology: Positive: Normal Genital - Urinary: Positive: Normal Musculoskeletal: Negative: Joint Pain, Joint Stiffness, Arthritis, Osteoporosis, Low Back Pain , Sciatica, Joint Deformities, Kyphoscoliosis, Other Endocrinology: Positive: Normal Neurology: Positive: Headache, Change in Vision, Numbness\Paresthesiae, Unexplained Weakness Psychiatry: Positive: Normal Allergic/Immunologic: Negative: Hx Anaphylaxis, Hx Angioedema, Hx Environmental, Hx Seasonal, Athsma, Hx HIV, Immunocompromise, Swollen Glands LymphNodes, Other Objective Active Medications: Acetazolamide (Diamox Tab*) 250 mg PO BID HERNAN Enoxaparin Sodium (Lovenox(*)) 40 mg SUBCUT Q24H [facility] Sodium Chloride (Ns 0.9% 1000 Ml*) 1,000 mls @ 50 mls/hr IV .per rate [facility] Last Admin: 06/26/17 08:12 Dose: 50 mls/hr Oxycodone HCl (Roxycodone Tab*) 15 mg PO Q3H PRN PRN Reason: PAIN - MODERATE TO SEVERE Potassium Chloride (Klor Con Er Tab*) 20 meq PO BID [facility] Vital Signs - 8 hr 06/26/17 06/26/17 06/26/17 03:32 04:03 04:13 Temperature 97.3 F Pulse Rate 122 Respiratory 18 Rate Blood Pressure 162/87 174/139 132/81 (mmHg) O2 Sat by Pulse 98 Oximetry 06/26/17 06/26/17 06/26/17 04:15 04:18 04:32 Temperature 98.0 F Pulse Rate 102 96 Respiratory 18 Rate Blood Pressure 124/88 134/76 127/91 (mmHg) O2 Sat by Pulse 99 97 Oximetry 06/26/17 06/26/17 06/26/17 04:45 05:00 06:23 Temperature Pulse Rate 87 Respiratory 16 Rate Blood Pressure 128/88 120/85 (mmHg) O2 Sat by Pulse 96 Oximetry 06/26/17 06/26/17 06/26/17 07:37 07:39 07:45 Temperature Pulse Rate 75 72 Respiratory Rate Blood Pressure 132/83 125/77 (mmHg) O2 Sat by Pulse 97 95 Oximetry 06/26/17 06/26/17 08:00 08:09 Temperature Pulse Rate 71 Respiratory 16 Rate Blood Pressure 122/79 (mmHg) O2 Sat by Pulse 96 Oximetry Oxygen Devices in Use Now: None - Alert, supine on ED stretcher. Ears/Nose/Mouth/Throat: Clear Oropharnyx, Mucous Membranes Moist Neck: NL Appearance and Movements; NL JVP, No Thyroid Enlargement, Masses Respiratory: Symmetrical Chest Expansion and Respiratory Effort, Clear to Auscultation, Clear to Percussion Cardiovascular: NL Sounds; No Murmurs; No JVD, RRR, No Edema, - Abdominal: NL Sounds; No Tenderness; No Distention, No Hepatosplenomegaly, - Extremities: No Edema, No Clubbing, Cyanosis, - Skin: No Rash or Ulcers, No Nodules or Sclerosis, - Neurological: Alert and Oriented x 3, NL Sensation Result Diagrams: 06/26/17 12:30 06/26/17 12:30 Additional Lab and Data: Lab Results 06/26/17 06/26/17 06/26/17 Range/Units 03:56 03:56 03:56 WBC 9.2 (3.5-10.8) 10^3/ul RBC 5.54 H (4.0-5.4) 10^6/ul Hgb 16.8 (14.0-18.0) g/dl Hct 49 (42-52) % MCV 88 (80-94) fL MCH 30 (27-31) pg MCHC 34 (31-36) g/dl RDW 14 (10.5-15) % Plt Count 309 (150-450) 10^3/ul MPV 8 (7.4-10.4) um3 Neut % (Auto) 73.2 (38-83) % Lymph % (Auto) 16.6 L (25-47) % Willacy % (Auto) 9.1 H (1-9) % Eos % (Auto) 0.6 (0-6) % Baso % (Auto) 0.5 (0-2) % Absolute Neuts (auto) 6.7 (1.5-7.7) 10^3/ul Absolute Lymphs (auto) 1.5 (1.0-4.8) 10^3/ul Absolute Monos (auto) 0.8 (0-0.8) 10^3/ul Absolute Eos (auto) 0.1 (0-0.6) 10^3/ul Absolute Basos (auto) 0 (0-0.2) 10^3/ul Absolute Nucleated RBC 0.01 10^3/ul Nucleated RBC % 0.2 INR (Anticoag Therapy) 0.86 (0.77-1.02) APTT 26.9 (26.0-36.3) seconds Sodium 137 (133-145) mmol/L Potassium 3.3 L (3.5-5.0) mmol/L Chloride 109 (101-111) mmol/L Carbon Dioxide 20 L (22-32) mmol/L Anion Gap 8 (2-11) mmol/L BUN 14 (6-24) mg/dL Creatinine 1.30 H (0.67-1.17) mg/dL Est GFR ( Amer) 77.9 (>60) Est GFR (Non-Af Amer) 60.5 (>60) BUN/Creatinine Ratio 10.8 (8-20) Glucose 127 H (70-100) mg/dL Calcium 9.3 (8.6-10.3) mg/dL Total Bilirubin 0.70 (0.2-1.0) mg/dL AST 18 (13-39) U/L ALT 22 (7-52) U/L Alkaline Phosphatase 79 (34-104) U/L Total Protein 7.6 (6.4-8.9) g/dL Albumin 4.2 (3.2-5.2) g/dL Globulin 3.4 (2-4) g/dL Albumin/Globulin Ratio 1.2 (1-3) Blood Type Antibody Screen 06/26/17 Range/Units 03:56 WBC (3.5-10.8) 10^3/ul RBC (4.0-5.4) 10^6/ul Hgb (14.0-18.0) g/dl Hct (42-52) % MCV (80-94) fL MCH (27-31) pg MCHC (31-36) g/dl RDW (10.5-15) % Plt Count (150-450) 10^3/ul MPV (7.4-10.4) um3 Neut % (Auto) (38-83) % Lymph % (Auto) (25-47) % Willacy % (Auto) (1-9) % Eos % (Auto) (0-6) % Baso % (Auto) (0-2) % Absolute Neuts (auto) (1.5-7.7) 10^3/ul Absolute Lymphs (auto) (1.0-4.8) 10^3/ul Absolute Monos (auto) (0-0.8) 10^3/ul Absolute Eos (auto) (0-0.6) 10^3/ul Absolute Basos (auto) (0-0.2) 10^3/ul Absolute Nucleated RBC 10^3/ul Nucleated RBC % INR (Anticoag Therapy) (0.77-1.02) APTT (26.0-36.3) seconds Sodium (133-145) mmol/L Potassium (3.5-5.0) mmol/L Chloride (101-111) mmol/L Carbon Dioxide (22-32) mmol/L Anion Gap (2-11) mmol/L BUN (6-24) mg/dL Creatinine (0.67-1.17) mg/dL Est GFR ( Amer) (>60) Est GFR (Non-Af Amer) (>60) BUN/Creatinine Ratio (8-20) Glucose (70-100) mg/dL Calcium (8.6-10.3) mg/dL Total Bilirubin (0.2-1.0) mg/dL AST (13-39) U/L ALT (7-52) U/L Alkaline Phosphatase (34-104) U/L Total Protein (6.4-8.9) g/dL Albumin (3.2-5.2) g/dL Globulin (2-4) g/dL Albumin/Globulin Ratio (1-3) Blood Type A Positive Antibody Screen Negative Assess/Plan/Problems-Billing Assessment: - Patient Problems (1) Increased intracranial pressure Status: Acute Code(s): G93.2 - BENIGN INTRACRANIAL HYPERTENSION SNOMED Code( s): 483303416 Comment: Continue acetazolamide. Dr. Cook to consult. (2) Hypesthesia Status: Acute Code(s): R20.1 - HYPOESTHESIA OF SKIN SNOMED Code(s): 053678419 Comment: Dr. Cook to consult.
[2017-06-26] MEDS ORDERED: acetaZOLAMIDE TAB* 250 MG PO SCH (10:00)
[2017-06-26] MEDS ORDERED: Enoxaparin(*) 40 MG/0.4 ML SYR SUBCUT SCH (10:00)
[2017-06-26] MEDS ORDERED: Potassium Chlor TAB* 10 MEQ TAB.ER PO SCH (10:00)
--- NOTE | 2017-06-26 10:23 | RAD ---
Indication: Evaluate for venous sinus thrombosis. Administered 80.1 ml of OMNIPAQUE 350 mg/ml CTA of the neck and head was performed after IV contrast administration. Venous phase imaging was attempted. The origins of the great vessels are unremarkable. The internal jugular veins appear widely patent. The carotid arteries are grossly unremarkable. Venous phase imaging of the brain demonstrates a filling defect right jugular vein near the jugular foramen. This filling defect extends into the right transverse sinus. There is a filling defect at the torcula with presumed sagittal sinus thrombus. A small left transverse sinus and jugular vein is noted. IMPRESSION: Filling defect in the transverse sinus and jugular vein extending to the sagittal sinus consistent with sagittal sinus thrombosis, right transverse sinus thrombosis. Findings discussed with Dr. Martel at 10:20 AM.
[2017-06-26] MEDS ORDERED: NS 0.9% 1000 ML* 1,000 ML IV ONE (10:35)
[2017-06-26] MEDS ORDERED: Heparin DRIP 25,000 UNITS(*) 25,000 UNITS/500 ML BAG IV SCH (11:45)
[2017-06-26] MEDS ORDERED: Heparin VIAL(*) 5000 UNITS/ML VIAL (FIVE THOUSAND) IV SCH (12:00)
[2017-06-26 12:53] LABS: Hematocrit 45 % (42-52); Hemoglobin 15.5 g/dl (14.0-18.0); Mean Corpuscular HGB Conc 34 g/dl (31-36); Mean Corpuscular Hemoglobin 30 pg (27-31); Mean Corpuscular Volume 89 fL (80-94); Mean Platelet Volume 8 um3 (7.4-10.4); Red Blood Count 5.08 10^6/ul (4.0-5.4); Red Cell Distribution Width 13 % (10.5-15)
[2017-06-26 14:11] VITALS: BP 142/82
--- NOTE | 2017-06-26 14:59 | ED ---
Ranjit Golden Abhishek, scribed for Cricket Martel MD on 06/26/17 at 0905 . Progress - Progress Note Progress Note: This patient was signed out from Dr. Thomas, pending disposition, awaiting hospital admittance. ReEval at 0855 reveals left arm drift, and dysmetria of the left hand. We discussed with Dr. Bloom at 0910 about status of admittance. He states they are awaiting CT report and neuro consultation prior to admission. 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 We notified patient and notified Dr. Bloom and Dr. Cook. Wolf recommended transfer for possible endovascular surgery as well as IV hydration. Patient will receive anticoagulation per strong. - Consult/PCP Time Called: 09:10 Consult/PCP: Dr. Bloom Consult Reason/Comments: We discussed with Dr. Bloom at 0910 about status of admittance. 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 Time Called: 10:45 Consult/PCP: Wolf Reason/Comments: Wolf Recommended transfer for possible endovascular surgery. Re-Evaluation - Re-Evaluation 0855 Re-Evaluation Time: 08:55 Comment: ReEval reveals left arm drift, and dysmetria of the left hand. Course/Dx - Course Course Of Treatment: This patient was signed out from Dr. Thomas, pending disposition, awaiting hospital admittance. ReEval at 0855 reveals left arm drift, and dysmetria of the left hand. We discussed with Dr. Bloom at 0910 about status of admittance. He states they are awaiting CT report and neuro consultation prior to admission. 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 We notified patient and notified Dr. Bloom and Dr. Cook. Dr. Bloom Recommended transfer for possible endovascular surgery as well as IV hydration. Patient will receive anticoagulation per strong. - Diagnoses Provider Diagnoses: Cerebral venous sinus thrombosis, acute - Provider Notifications Instructed by Provider To: Other - At 0415, neurology at [facility] advised that patient is not a CVA candidate so there is no need for a consult. Neurology at [facility] recommends admission. At 0600, Dr. Marrero (hospitalist) agreed to inform incoming hospitalist of patient admission. - Critical Care Time Critical Care Time: 30-74 min The documentation as recorded by the Ranjit brothers Abhishek accurately reflects the service I personally performed and the decisions made by me, Cricket Martel MD.
[2017-06-29 12:51] LABS: Free Protein S Antigen 120 % (65 - 160)
[2017-06-29 16:01] LABS: Phospholipid IgM AB <9.4 MPL
[2017-06-29 16:02] LABS: Phospholipid Ab IgG < 9.4 GPL; Phospholipid Ab IgM, S < 9.4 MPL
[2017-06-29 16:16] LABS: Protein C Activity 101 % (70 - 150)
[2017-06-30 12:49] LABS: Prothrombin 20210 Mutation Negative (Negative)
== END 2017-06-26 14:12 | disposition short-term general hospital (02) ==
LOC: ED 03:30 → MEDTELE 09:34 → UNDOADMOB 09:34 → ED 14:12
DX: G08 Intracranial and intraspinal phlebitis and thrombophlebitis (principal); G93.2 Benign intracranial hypertension
CPT/HCPCS: 36415; 70450; 70496; 70498; 80053; 81003; 81015; 81240; 81241; 83520; 84520; 85025; 85300; 85302; 85303; 85306; 85610; 85730; 86147; 86850; 86900; 86901; 93005; 96361; 96372; 96374; 96375; 99285; A9270-GY; J2270; J2405; Q9967